=== PATIENT | male | born 1935 | race Caucasian/White ===

== ENCOUNTER 2020-07-13 16:36 | Emergency (ER) | payer OTHER ==
--- OUTSIDE RECORDS SUMMARY | 2020-07-13 16:37 | XMS REPORT | Continuity of Care Document ---
:1935 Author Organization [facility] t Address [address] [place] [address] Care Team Providers Name Role Phone Valeriano Wilkins MD Attending Clinician Only, Test Attending Clinician Unavailable Russ Wiley RN Attending Clinician Unavailable Julia WHEELER Attending Clinician Keeley MARTÍNEZ Attending Clinician BERTA Attending Clinician Unavailable Valeriano Wilkins MD Admitting Clinician Problems Condition Condition Condition Status Onset Resolution Last Treating Co mments Source Name Details Category Date Date Treatment Clinician Date History of History of Problem Resolve Univers back pain back pain d [facility] of [place] [facility] Radiculiti Radiculiti Problem Active U nivers s s [facility] of [place] [facility] Arthritis Arthritis Problem Active Uni vers of right of right [place] of upper arm [place] [facility] Arthritis Arthritis Problem Active Uni vers of right of right ity of wrist wrist [place] [facility] Allergies, Adverse Reactions, Alerts This patient has no known allergies or adverse reactions. Medications Ordered Filled Start Stop Current Ordering Indication Dosage Frequency Signature Comments Components Source Medication Medication Date Date Medication? Clinician (SIG) Name Name amLODIPine amLODIPine Yes Uni vers Besylate Besylate ity of TABS TABS [place] [facility] Losartan Losartan Yes Univers Potassium Potassium ity o f TABS TABS [place] [facility] Procedures This patient has no known procedures. Encounters Start End Encounter Admission Attending Care Care Encounter Source Date/Time Date/Time Type Type Clinicians Facility Department ID 2020-04-02 2020-04-02 [facility] Franky [facility] [id number] 11:03:03 13:10:00 Encounter Francisco Call [id number] Valeriano Beverly [id number] Surgical [id number] [place] 071 2020-03-26 2020-03-26 [facility] [id number] 07:05:55 09:52:00 Encounter Francisco Call [id number] Valeriano Rush [id number] Surgical [id number] [place] [address] 2020-03-25 2020-03-25 Laboratory Only, [facility] [id number] 08:20:41 08:35:41 Only Test Oneyda [id number] [place] [id number] Professio [id number] [address] 2020-03-25 2020-03-25 [facility] [id number] 00:00:00 00:00:00 Laura Solano MULTISPEC [id number] IALTY [id number] CALLIHAM [id number] [facility] 2020-03-12 2020-03-12 Anesthesia Remy Dumont [facility] [id number] 08:30:00 09:04:00 Benjamín [place] 35 [id number] [place] [id number] Surgical [id number] [place] 020 2019-11-26 2019-11-26 Appointmen BERTA [facility] Orthopedics [id number] [facility] 13:30:00 13:30:00 vivian AGRAWAL M.D. at [facility] Yusef Vanessa [facility] [place] - [facility] [place] Results Test Description Test Time Test Comments Results Result Sourc e Comments [U] XRAY ELBOW 2 2019-11-26 Images Universi ty of VWS RIGHT [id number] 14:11:00 acquired, not [place] reported on [facility] this accession number. [U] XRAY HAND MIN 2019-11-26 Images Univers ity of 3 VWS RIGHT [id number] 14:11:00 [place] [facility] [place] accession number.
[2020-07-13 17:22] LABS: Absolute Lymphocytes (CBC) 1.3 K/uL (0.7-4.9); Basophils % 0.4 % (0-1.3); Hematocrit 39.5 % (39.6-49.0); Lymphocytes % 8.8 % (15.3-44.8); MPV 8.6 fL (7.6-11.3); RBC Red Blood Cell Count 4.03 M/uL (4.33-5.43)
--- NOTE | 2020-07-13 17:27 | RAD REPORT ---
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 All CT scans are performed using dose optimization technique as appropriate and may include automated exposure control or mA/KV adjustment according to patient size. FINDINGS: No intracranial hemorrhage, mass, or cerebral edema. No cortical edema or sulcal effacemen t. No extra-axial fluid collections. 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 Diminished attenuation in the left occip ital lobe probably old CVA as well. Mild to moderate atrophy changes are present. Ventricles are in proportion. Chronic ischemic changes are seen throughout the cerebral white matter. Arterial and physiologic calcifications are present. Visualized portions of the mastoid air cells, paranasal sinuses, and orbits are unremarkable. Findings telephoned to the referring physician 5:21 p.m. IMPRESSION: No CT evidence of acute intracranial process. Left parietal and occipital encephalomalacia changes from prior CVA. Atrophy and chronic ischemic tommy nges are present throughout the cerebral hemispheres. Chronic ischemic changes can mask nonhemorrhagic acute infarction. MR brain followup can be obtained if there is ongoing concern for acute ischemia.
[2020-07-13 17:31] LABS: Protime INR 0.97
--- NOTE | 2020-07-13 17:37 | RAD REPORT ---
EXAM DESCRIPTION: RAD - Chest Single View - 07/13/2020 5:27 pm CLINICAL HISTORY: COPD COMPARISON: None TECHNIQUE: AP portable chest image was obtained 07/13/2020 5:27 pm . FINDINGS: Fibrotic lung pattern is present. Apical pleural thickening is seen. No focal mass or cons olidation. No failure or volume overload. Heart and vasculature are normal. No measurable pleural eff usion and no pneumothorax. No acute bony abnormality seen. No acute aortic findings suspected. IMPRESSION: Interstitial fibrotic pattern with no acute cardiopulmonary finding.
[2020-07-13 17:44] LABS: BUN Blood Urea Nitrogen 20 mg/dL (7-18); Bicarbonate 24 mmol/L (21-32); Glucose Level 101 mg/dL (74-106); Sodium Level 137 mmol/L (136-145); Troponin (Emerg Dept Use Only) < 0.02 ng/mL (0.0-0.045)
[2020-07-13 17:46] LABS: Potassium 4.4 mmol/L (3.5-5.1)
[2020-07-13] MEDS ORDERED: ASPIRIN 325 MG TAB ONE (17:54)
[2020-07-13] MEDS ORDERED: FOLIC ACID 5 MG/ML VIAL ONE (17:55)
--- NOTE | 2020-07-13 18:40 | EDPHYS ---
Physician Documentation [facility] Name: Saad Singh Age: 84 yrs Sex: Male : 1935 Arrival Date: 07/13/2020 Time: 16:37 Bed 8 Private MD: ED Physician Chandu Foreman HPI: 07/13 16:59 This 84 yrs old Male presents to ER via Wheelchair with complaints of S/S of rn Possible Stroke. 16:59 The patient's problem is reported as weakness, in the right lower extremity. Onset: The rn symptoms/episode began/occurred 6 day(s) ago. Duration: The episode is continuous. The symptoms are alleviated by nothing. The symptoms are aggravated by nothing. Severity of symptoms: At their worst the symptoms were mild in the emergency department the symptoms are unchanged. The patient has experienced a previous episode. Family reports about 6 days ago began dragging right foot, has had stroke before, didn't come in for eval because of fear of COVID-19, not improving, daughter came from out of town and made him come in today. No headache. + long time smoker and daughter states appears to have labored breathing, no diagnosis of COPD, but 70+ years of smoking hx. No fever. No trauma. Also reports about 2 years of left groin swelling and pain, no gross changes. . 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 - Family history:: not pertinent. - Social history:: Smoking status: Patient reports the use of cigarette tobacco products. - Hospitalizations: : No recent hospitalization is reported. ROS: 16:59 Constitutional: Negative for fever, chills, and weight loss, Eyes: Negative for injury, rn pain, redness, and discharge, ENT: Negative for injury, pain, and discharge, Neck: Negative for injury, pain, and swelling, Cardiovascular: Negative for chest pain, palpitations, and edema, Respiratory: Negative for pleuritic chest pain, Abdomen/GI: Negative for nausea, vomiting, diarrhea, and constipation, MS/Extremity: Negative for injury and deformity, Skin: Negative for injury, rash, and discoloration, Neuro: Negative for headache, numbness, tingling, and seizure. Exam: 16:59 Constitutional: Thin male, no acute distress Head/Face: Normocephalic, atraumatic. music industry intern: dry MM Cardiovascular: Regular rate and rhythm. No pulse deficits. Respiratory: + mild tachypnea, no retractions Abdomen/GI: soft, non-tender, + large left inguinal hernia that extends toward left testicle, no skin changes. Skin: Warm, dry MS/ Extremity: Pulses equal, no cyanosis. Neuro: Awake and alert, GCS 15, oriented to person, place, time, and situation. Cranial nerves II-XII grossly intact. Motor strength 5/5 in LUE/LLE, + contracted RUE distal> proximal, 4/5 strength RLE without drift. Sensory grossly intact. Cerebellar exam normal. 17:32 ECG was reviewed by the Attending Physician. rn Vital Signs: 16:38 BP 124 / 62; Pulse 100; Resp 16 S; Temp 98.3(O); Pulse Ox 100% on R/A; aa5 17:45 BP 115 / 61; Pulse 94; Resp 15; Pulse Ox 100% ; jl7 18:30 BP 131 / 65; Pulse 94; Resp 94; Pulse Ox 100% ; jl7 19:00 BP 113 / 64; Pulse 95; Resp 15; Pulse Ox 97% ; jl7 NIH Stroke Scale Scores: 16:48 NIHSS Score: 2 jl7 MDM: 16:43 Patient medically screened. rn 18:35 Differential diagnosis: CVA, TIA, metabolic disorder, UTI, dehydration COPD. Data rn reviewed: vital signs, nurses notes, lab test result(s), EKG, radiologic studies, CT scan, plain films, and as a result, I will admit patient. Counseling: I had a detailed discussion with the patient and/or guardian regarding: the historical points, exam findings, and any diagnostic results supporting the discharge/admit diagnosis, lab results, the need for further work-up and treatment in the hospital. Response to treatment: There is no appreciated change of the patient's symptoms at this time. Admission orders: after a detailed discussion of the patient's condition and case, the admit orders are written by me. ED course: Pt with signs and symptoms of subacute stroke, CT head without acute findings, stable vitals. Will admit to hospitalist service for MRI and neuro consult. Pending UA. . 18:58 ED course: [facility] Spoke with daughter and rn , they are leaving it up to him ultimately. Will dc home with abx for UTI, and recommend baby aspirin daily. . 07/13 16:58 Order name: Troponin (emerg Dept Use Only); Complete Time: 18:19 07/13 16:58 Order name: Basic Metabolic Panel; Complete Time: 18:19 07/13 16:58 Order name: CBC with Diff; Complete Time: 17:31 07/13 16:58 Order name: Protime (+inr); Complete Time: 18:19 07/13 16:58 Order name: Ptt, Activated; Complete Time: 18:19 07/13 17:25 Order name: Glucose, Ancillary Testing; Complete Time: 17:28 [facility] 07/13 16:58 Order name: CT Stroke Brain w/o Contrast; Complete Time: 17:31 07/13 16:58 Order name: Stroke CXR 1 View; Complete Time: 17:42 07/13 17:30 Order name: Urine Microscopic Only 07/13 18:49 Order name: Urine Dipstick--Ancillary (enter results) 07/13 19:05 Order name: Urine Culture [facility] 07/13 16:58 Order name: EKG; Complete Time: 16:59 07/13 16:58 Order name: Accucheck; Complete Time: 17:16 07/13 16:58 Order name: Cardiac monitoring; Complete Time: 17:16 07/13 16:58 Order name: EKG - Nurse/Tech; Complete Time: 17:16 07/13 16:58 Order name: IV Saline Lock; Complete Time: 17:16 07/13 16:58 Order name: Labs collected and sent; Complete Time: 17:16 07/13 16:58 Order name: O2 Per Protocol; Complete Time: 17:16 07/13 16:58 Order name: O2 Sat Monitoring; Complete Time: 17:16 07/13 17:30 Order name: Urine Dipstick-Ancillary (obtain specimen); Complete Time: 19:02 rn EC:32 Rate is 96 beats/min. Rhythm is regular. QRS Breeding is Normal. MA interval is normal. QRS rn interval is normal. QT interval is normal. No Q waves. T waves are Normal. No ST changes noted. Clinical impression: NSR w/ Non-specific ST/T Changes. Interpreted by me. Reviewed by me. Administered Medications: 17:51 Drug: Aspirin 325 mg Route: PO; jl7 19:15 Follow up: Response: No adverse reaction jl7 17:51 Drug: foLIC Acid 1 mg Route: IVPB; Site: left forearm; jl7 17:52 Follow up: Response: No adverse reaction; IV Status: Completed infusion jl7 18:55 Drug: Rocephin 1 grams Route: IV; Rate: calculated rate; Site: left forearm; jl7 18:58 Follow up: Response: No adverse reaction; IV Status: Completed infusion jl7 Point of Care Testing: Blood Glucose: 17:10 Blood Glucose: 98 mg/dL; jl7 Ranges: Critical Glucose Levels:Adult <50 mg/dl or >400 mg/dl <40 mg/dl or >180 mg/dl Disposition: 07/13/20 19:00 Discharged to Home. Impression: Weakness, Subacute CVA, Urinary tract infection, site not specified. - Condition is Stable. - Discharge Instructions: Stroke Prevention, Urinary Tract Infection, Adult, Weakness, Rehabilitation After a Stroke, Adult. - Prescriptions for cefpodoxime 100 mg Oral Tablet - take 2 tablet by ORAL route every 12 hours for 10 days take with food; 40 tablet. - Medication Reconciliation Form, Thank You Letter, Antibiotic Education, Prescription Opioid Use form. - Follow up: Phu Oshea MD; When: As needed; Reason: Recheck today's complaints, Re-evaluation by your physician. - Problem is new. - Symptoms are unchanged. NIH Stroke Scale - NIH Stroke Score Date: 07/13/2020 Time: 16:48 Total Score = 2 1a. Level of Consciousness (LOC) - 0(Alert) 1b. Level of Consciousness (LOC) (Year \T\ Age) - 0(Both) 1c. LOC Commands (Open \T\ Closes Eyes/Prosthetics Technician) - 0(Both) 2. Best Gaze (Lateral Gaze Paresis) - 0(Normal) 3. Visual Field Loss - 0(No visual loss) 4. Facial Palsy - 0(Normal) 5a. Left Arm: Motor (10-second hold) - 0(No drift) 5b. Right Arm: Motor (10-second hold) - 1(Drift) 6a. Left Leg: Motor (5-second hold - always test supine) - 0(No drift) 6b. Right Leg: Motor (5-second hold - always test supine) - 0(No drift) 7. Limb Ataxia (finger/nose \T\ heel/chu - test with eyes open) - 1(Present in one limb) 8. Sensory Loss (pinprick arms/legs/face) - 0(Normal) 9. Best Language: Aphasia (description/naming/reading) - 0(No aphasia) 10. Dysarthria (speech clarity - read or repeat words) - 0(Normal) 11. Extinction and Inattention (visual/tactile/auditory/spatial/personal) - 0(No abnormality) Initials: jl7 Signatures: Dispatcher [employer] EDChandu Rm MD MD rn Calderon, Yaritza, RN RN aa5 [employer] RN RN jl7 Corrections: (The following items were deleted from the chart) 18:59 18:39 Hospitalization Ordered by Nicolas Foreman MD for Observation. Preliminary rn diagnosis is Weakness; Chronic obstructive pulmonary disease, unspecified. Bed requested for Telemetry/MedSurg (observation). Status is Observation. Condition is Stable. Problem is new. Symptoms are unchanged. rn 19:16 19:00 07/13/2020 19:00 Discharged to Home. Impression: Weakness; Subacute CVA; jl7 Urinary tract infection, site not specified. Condition is Stable. Forms are Medication Reconciliation Form, Thank You Letter, Antibiotic Education, Prescription Opioid Use. Follow up: Phu Oshea; When: As needed; Reason: Recheck today's complaints, Re-evaluation by your physician. Problem is new. Symptoms are unchanged. rn
--- NOTE | 2020-07-13 18:40 | ER ---
Nurse's Notes [facility] Name: Saad Singh Age: 84 yrs Sex: Male : 1935 Arrival Date: 07/13/2020 Time: 16:37 Bed 8 Private MD: Diagnosis: Weakness;Subacute CVA;Urinary tract infection, site not specified Presentation: 07/13 16:38 Chief complaint: Pt's daughter states "my mom called me about 6 days ago saying that he aa5 fell and couldn't get up and that he was talking incoherently and I came down here from [place] and [facility]". Pt's daughter reports pt has right arm weakness from previous CVA but reports right leg weakness is new from 6 days ago. Pt appears confused in triage, daughter reports confusion x 6 days. 16:38 Acuity: COREY 2 aa5 16:38 Coronavirus screen: Client denies travel out of the [place] in the last 14 days. At this aa5 time, the client does not indicate any symptoms associated with coronavirus-19. 16:38 Method Of Arrival: Wheelchair aa5 16:38 Ebola Screen: Patient negative for fever greater than or equal to 101.5 degrees aa5 Fahrenheit, and additional compatible Ebola Virus Disease symptoms. Initial Sepsis Screen: Does the patient meet any 2 criteria? No. Patient's initial sepsis screen is negative. Does the patient have a suspected source of infection? No. Patient's initial sepsis screen is negative. Risk Assessment: Do you want to hurt yourself or someone else? Patient reports no desire to harm self or others. 16:38 Onset of symptoms was June 2020. aa5 17:59 No acute neurological deficit is noted. Pre-hospital glucose is not applicable to this jl7 patient. 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 - Family history:: not pertinent. - Social history:: Smoking status: Patient reports the use of cigarette tobacco products. - Hospitalizations: : No recent hospitalization is reported. Screenin:17 Abuse screen: Denies threats or abuse. Denies injuries from another. Nutritional jl7 screening: No deficits noted. Tuberculosis screening: No symptoms or risk factors identified. Fall Risk IV access (20 points). Total [place] Fall Scale indicates No Risk (0-24 pts). Assessment: 16:48 VAN Scoring: Arm Drift: Minor drift Visual Disturbance: No visual disturbance noted. jl7 Aphasia: No aphasia noted. Neglect: No neglect noted. The patient has not been NPO before screening. The patient is currently on the following diet: Regular The patient is alert, and able to follow commands. The patient does not exhibit slurred or garbled speech. The patient is not exhibiting difficulty speaking. The patient does not exhibit difficulty understanding words. The patient is able to swallow own secretions with no drooling or need for suction. Patient tolerated one teaspoon of water. No drooling, immediate coughing, gurgling, or clearing of the throat was noted. The patient tolerated 90mL of water. No drooling, immediate coughing, gurgling, or clearing of the throat was noted. The patient passed the bedside swallow screening. Oral medications may be given as ordered. Contact Physician for further diet orders. Provider notified of bedside swallow screening results: Chandu Foreman MD. 16:50 General: Appears in no apparent distress. uncomfortable, Behavior is cooperative, jl7 anxious. Pain: Denies pain. Neuro: Level of Consciousness is awake, alert, obeys commands, confused, Oriented to person, place, situation. Cardiovascular: Patient's skin is warm and dry. Respiratory: Airway is patent Respiratory effort is even, unlabored, Respiratory pattern is regular, symmetrical. GI: No signs and/or symptoms were reported involving the gastrointestinal system. : No signs and/or symptoms were reported regarding the genitourinary system. EENT: No signs and/or symptoms were reported regarding the EENT system. Derm: Skin is pink, warm \\T\\ dry. Musculoskeletal:. 17:00 T-PA (Activase) Screening: Contraindications: Patient reports onset of signs and jl7 symptoms of stroke greater than 6 hours ago: Yes. 17:58 Reassessment: Patient appears in no apparent distress at this time. No changes from jl7 previously documented assessment. Patient and/or family updated on plan of care and expected duration. Pain level reassessed. Patient is alert, oriented x 3, equal unlabored respirations, skin warm/dry/pink. 18:45 Reassessment: ERD at bedside discussing results and POC. jl7 Vital Signs: 16:38 BP 124 / 62; Pulse 100; Resp 16 S; Temp 98.3(O); Pulse Ox 100% on R/A; aa5 17:45 BP 115 / 61; Pulse 94; Resp 15; Pulse Ox 100% ; jl7 18:30 BP 131 / 65; Pulse 94; Resp 94; Pulse Ox 100% ; jl7 19:00 BP 113 / 64; Pulse 95; Resp 15; Pulse Ox 97% ; jl7 NIH Stroke Scale Scores: 16:48 NIHSS Score: 2 jl7 ED Course: 16:37 Patient arrived in ED. as 16:43 Chandu Foreman MD is Attending Physician. rn 16:43 Arm band placed on Patient placed in an exam room, on a stretcher. aa5 16:45 [employer], DARSHAN is Primary Nurse. jl7 16:53 Triage completed. aa5 17:17 Patient has correct armband on for positive identification. Placed in gown. Bed in low jl7 position. Call light in reach. Side rails up X2. Adult w/ patient. pvc monitor on. Pulse ox on. NIBP on. Warm blanket given. 17:17 Initial lab(s) drawn, by me, sent to lab. EKG done, by ED staff, reviewed by Chandu Foreman MD. Inserted saline lock: 20 gauge in right forearm, using aseptic technique. Blood collected. 17:18 CT Stroke Brain w/o Contrast In Process Unspecified. EDMS 17:27 Stroke CXR 1 View In Process Unspecified. EDMS 18:38 Nicolas Foreman MD is Hospitalizing Provider. rn 18:59 Phu Oshea MD is Referral Physician. rn 19:01 Urine collected: straight cath specimen, cloudy. Straight cath inserted, using sterile mh5 technique, 16 Fr. Specimen obtained. 19:02 Urine Microscopic Only Sent. [facility] 19:16 No provider procedures requiring assistance completed. IV discontinued, intact, jl7 bleeding controlled, No redness/swelling at site. Pressure dressing applied. Administered Medications: 17:51 Drug: Aspirin 325 mg Route: PO; 7 19:15 Follow up: Response: No adverse reaction jl7 17:51 Drug: foLIC Acid 1 mg Route: IVPB; Site: left forearm; jl7 17:52 Follow up: Response: No adverse reaction; IV Status: Completed infusion jl7 18:55 Drug: Rocephin 1 grams Route: IV; Rate: calculated rate; Site: left forearm; jl7 18:58 Follow up: Response: No adverse reaction; IV Status: Completed infusion 7 Point of Care Testing: Blood Glucose: 17:10 Blood Glucose: 98 mg/dL; 7 Ranges: Outcome: 18:39 Decision to Hospitalize by Provider. rn 19:00 Discharge ordered by MD. rn 19:16 Discharged to home via wheelchair. [facility] emergency room 19:16 Condition: stable 19:16 Discharge instructions given to patient, family, Instructed on discharge instructions, follow up and referral plans. medication usage, Demonstrated understanding of instructions, follow-up care, medications, Prescriptions given X 1. 19:16 Patient left the ED. 7 NIH Stroke Scale - NIH Stroke Score Date: 07/13/2020 Time: 16:48 Total Score = 2 1a. Level of Consciousness (LOC) - 0(Alert) 1b. Level of Consciousness (LOC) (Year \\T\\ Age) - 0(Both) 1c. LOC Commands (Open \\T\\ Closes Eyes/Radiological Equipment Specialist) - 0(Both) 2. Best Gaze (Lateral Gaze Paresis) - 0(Normal) 3. Visual Field Loss - 0(No visual loss) 4. Facial Palsy - 0(Normal) 5a. Left Arm: Motor (10-second hold) - 0(No drift) 5b. Right Arm: Motor (10-second hold) - 1(Drift) 6a. Left Leg: Motor (5-second hold - always test supine) - 0(No drift) 6b. Right Leg: Motor (5-second hold - always test supine) - 0(No drift) 7. Limb Ataxia (finger/nose \\T\\ heel/chu - test with eyes open) - 1(Present in one limb) 8. Sensory Loss (pinprick arms/legs/face) - 0(Normal) 9. Best Language: Aphasia (description/naming/reading) - 0(No aphasia) 10. Dysarthria (speech clarity - read or repeat words) - 0(Normal) 11. Extinction and Inattention (visual/tactile/auditory/spatial/personal) - 0(No abnormality) Initials: jl7 Signatures: Dispatcher [employer] Alexandrea Jean Roman, MD MD rn Calderon, Audri, RN RN sam5 Yuli Cui Jahala, RN RN jl7
[2020-07-13] MEDS ORDERED: CEFTRIAXONE/SWI 1gm 1 GM/10 ML SYR ONE (19:01)
[2020-07-13 19:04] LABS: Urine Bacteria 20-50 /HPF (NONE SEEN); Urine Culture Reflex Order REFLEXED; Urine Mucus 1+ /HPF (NONE SEEN)
[2020-07-13 19:05] LABS: Urine Blood TRACE (NEG); Urine Glucose NEGATIVE (NEG); Urine Protein 1+ (NEG); Urine Specific Gravity 1.025 (1.005-1.030)
--- NOTE | 2020-07-14 07:01 | EKG ---
Test Date: 2020-07-13 Test Time: 16:58:31 Senior Supply Chain Analyst: RUPESH MEASUREMENT RESULTS: Intervals: Rate: 96 MA: 174 QRSD: 94 QT: 352 QTc: 444 [place]: P: 79 MA: 174 QRS: 66 T: 78 INTERPRETIVE STATEMENTS: Normal sinus rhythm Possible Left atrial enlargement Septal infarct, age undetermined Abnormal ECG No previous ECG available for comparison Electronically Signed On 07-14-20 07:00:09 CDT by Orion Mcbride
[2020-07-16 11:39] VITALS: TEMP 98.3
[2020-07-16 11:43] VITALS: BP 113/64; O2SAT 97
== END 2020-07-13 19:16 | disposition home or self-care (01) ==
LOC: ER 16:36
DX: I63.9 Cerebral infarction, unspecified (principal); N39.0 Urinary tract infection, site not specified; R29.702 NIHSS score 2; I10 Essential (primary) hypertension; F17.210 Nicotine dependence, cigarettes, uncomplicated
CPT/HCPCS: 93005; 87088; 85025; 87086; 80048; 36415; 85610; 82947; 85730; 84484; 70450; 71045; 51702; 96375; 96374; 99285; J0696; 81003; 81015

== ENCOUNTER 2020-10-01 07:02 | Day surgery (SDC) | payer OTHER ==
[2020-09-28 15:03] LABS: Absolute Lymphocytes (CBC) 1.5 K/uL (0.7-4.9); Basophils % 0.9 % (0-1.3); Hematocrit 36.9 % (39.6-49.0); Lymphocytes % 21.4 % (15.3-44.8); MPV 8.9 fL (7.6-11.3); RBC Red Blood Cell Count 3.91 M/uL (4.33-5.43)
[2020-09-28 15:21] LABS: Potassium 4.1 mmol/L (3.5-5.1)
[2020-10-01] MEDS ORDERED: Ringers Lactate 1,000 ML IV ONE (07:26)
[2020-10-01] MEDS ORDERED: CEFAZOLIN/SWI 1gm 1 GM/10 ML SYR ONE (07:26)
[2020-10-01] MEDS ORDERED: FENTANYL CITR 100 MCG/2 ML ONE (07:33)
[2020-10-01] MEDS ORDERED: MIDAZOLAM HCL 2 MG/2 ML INJ ONE (07:33)
[2020-10-01] MEDS ORDERED: propofoL 200 MG/20 ML VIAL IV ONE (07:33)
[2020-10-01] MEDS ORDERED: LIDOCAINE 1% MPF 5 ML VIAL ONE (07:33)
[2020-10-01] MEDS ORDERED: NS 0.9% VIAL 10 ML ONE (08:16)
[2020-10-01] MEDS ORDERED: Phenylephrine HCl 10 MG/ML 1 ML VIAL ONE (08:16)
[2020-10-01] MEDS ORDERED: dexAMETHasone 10 MG/ML VIAL ONE (08:28)
[2020-10-01] MEDS ORDERED: KETOROLAC 30 MG/ML INJ ONE (08:28)
[2020-10-01] MEDS ORDERED: ONDANSETRON 4 MG/2 ML VIAL ONE ×2 (08:45→09:32)
[2020-10-01] MEDS ORDERED: Mastisol Adhesive Liq ONE (08:52)
[2020-10-01] MEDS ORDERED: MORPHINE 4 MG/ML SYR ONE (09:32)
--- NOTE | 2020-10-01 09:59 | OP ---
Date of Procedure: 10/01/2020 Surgeon: David Love MD Welt Treater: LEILANI Rivas. Preoperative Diagnosis: Incarcerated left inguinal hernia. Postoperative Diagnosis: Incarcerated left inguinal hernia. Procedure: Repair of left inguinal hernia, incarcerated. Estimated Blood Loss: Minimal. Specimen: Hernia sac. Findings: Incarcerated small bowel and colon and a large inguinal scrotal hernia on the left side. Anesthesia: General. Complications: None. Disposition: The patient tolerated the procedure in stable condition and taken to Recovery awake and in good general condition. Procedure In Detail: The patient was brought to the OR, placed in supine position. General anesthes ia begun. The patient was prepped and draped in the usual sterile fashion. Then, Marcaine 0.5% was infiltrated locally. A 15-blade was used to make a 5 cm incision obliquely to the anterior iliac sup erior spine on the left side and the pubic tubercle. Subcutaneous tissues were divided. Theresa fasc ia was identified and divided. Aponeurosis was greatly attenuated. The hernia sac with content and cord structures were visible just below the Theresa fascia. The cord structure was from the hernia and the hernia sac was identified and opened. There was incarcerated small bowel and sigmoid colon present, which were carefully reduced back into the peritoneal cavity and then the sac was sep arated from the cord structures, and a high ligation 2-0 Prolene, suture ligature free hand tie as we ll as a pursestring on the inside was done to close the defect. The inguinal floor was somewhat atte nuated and this was strengthened after the sac was excised with 2-0 Prolene sutures running from the pubic tubercle inferiorly in the internal ring. Then, Marlex mesh plug was placed in the internal ri ng and secured with VersaTack stapler. An Onlay mesh was placed on the inguinal floor, secured media lly to the pubic tubercle, inferiorly to the shelving edge, superior to the conjoined tendon, and lat erally to each other. Then, cord structures were placed back in anatomic location and aponeurosis as it was attenuated could not be sutured. The Theresa fascia was closed with 3-0 chromic. The skin wa s closed with 3-0 chromic. Sterile dressing was applied. The patient was awakened and taken to [facility] very in good general condition. Discharge Note: The patient will go to Day Surgery and home when stable. Disposition: Home. Condition: Stable. Discharge Instructions: Resume home medications and diet. Activity as tolerated. No heavy lifting. Remove outer dressing in 3 days and shower. Keep wound clean, dry. Keep Steri-Strips on at all ti mes. Ice packs and scrotal support. Tylenol No.3 one tablet p.o. q.4 p.r.n. pain. Follow up in my o julius in 2 weeks. Call for appointment. SUHA/RASHEEDA Voice ID: [id number] Report ID: [id number]
[2020-10-01] MEDS ORDERED: HYDROCODONE/APAP 7.5/325 MG TAB ONE (10:17)
[2020-10-01 10:19] VITALS: TEMP 97.6; O2SAT 100
[2020-10-01 10:46] VITALS: BP 122/64
== END 2020-10-01 10:40 | disposition home or self-care (01) ==
LOC: OR 07:02
PROVIDERS: ATTEND Surgery
PROC: 0YU60JZ Supplement Left Inguinal Region with Synthetic Substitute, Open Approach (ICD-10-PCS; principal; 2020-10-01 08:30)
DX: K40.30 Unilateral inguinal hernia, with obstruction, without gangrene, not specified as recurrent (principal); I10 Essential (primary) hypertension; Z20.828 Contact with and (suspected) exposure to other viral communicable diseases; Z86.73 Personal history of transient ischemic attack (TIA), and cerebral infarction without residual deficits
CPT/HCPCS: 85025; 80048; 36415; 88302; 49507; U0002; J2704; J2370; J3010; J1100; J0690; J7120; J2405 ×2; J2250

== ENCOUNTER 2020-11-09 07:19 | Day surgery (SDC) | payer OTHER ==
[2020-11-04 11:36] LABS: Absolute Lymphocytes (CBC) 1.3 K/uL (0.7-4.9); Basophils % 0.7 % (0-1.3); Hematocrit 36.3 % (39.6-49.0); Lymphocytes % 15.9 % (15.3-44.8); RBC Red Blood Cell Count 3.83 M/uL (4.33-5.43)
[2020-11-04 12:03] LABS: Protime INR 0.99
[~2020-11-09 07:19] MED LIST: HEPA 1000U/500MLS 2,000 UNIT/1,000 ML BAG IV ONE
[2020-11-09] MEDS ORDERED: NA CHLORIDE 0.9% 500 ML ONE (07:37)
[2020-11-09] MEDS ORDERED: MIDAZOLAM HCL 2 MG/2 ML INJ ONE (09:49)
[2020-11-09] MEDS ORDERED: FENTANYL CITR 100 MCG/2 ML ONE (09:50)
--- NOTE | 2020-11-09 11:09 | OP ---
Date of Procedure: 11/09/2020 Surgeon: ABDIRAHMAN CREWS Procedure Performed: Selective carotid angiogram. Indication: Severe carotid stenosis by ultrasound and recent CVA. Access: Right femoral artery 6-Zimbabwean, closed with StarClose with good hemostasis. Complications: None. Bleeding: Less than 10 mL. Description Of Procedure: After risks, benefits, and alternatives were explained, the patient agreed to the procedure and signed informed consent. Then, we accessed right femoral artery with guidance of the fluoroscopy and then inserted a 6-Zimbabwean [place] sheath. We used a micropuncture kit for trinity t. Then, we took a 6-Zimbabwean 3DRC catheter into the aortic root over a J-wire, engaged the brachyceph alic artery, and then selectively the right common carotid artery and we took standard views and then we engaged the left common carotid artery selectively and took standard views. Then, we removed the catheter and the sheath and closed the access using StarClose with good hemostasis. Findings: 1.The right common carotid artery is patent. Right internal carotid artery is patent. 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 No significant stenosis. 2.Left common carotid artery is severely stenosed, likely 99% with a very slow flow through the jersey ry. Could not visualize the distal portion of it. Conclusion: Severe right common carotid artery stenosis. Recommendations And Plan: I discussed the case with Dr. Hopkins, Cardiovascular Surgery. We will pl an to transfer the patient to [facility] for carotid endarterectomy tomorrow morning given the fact trinity t he had a stroke affecting his right side of the body within the past 6 months. SR/MODL Voice ID: [id number] Report ID: [id number]
[2020-11-09 13:29] VITALS: TEMP 97.3; O2SAT 100
[2020-11-09 13:58] VITALS: BP 130/64
== END 2020-11-09 14:05 | disposition short-term general hospital (02) ==
LOC: CCL 07:19
PROVIDERS: ATTEND Internal Medicine
DX: I65.22 Occlusion and stenosis of left carotid artery (principal); I10 Essential (primary) hypertension; F17.210 Nicotine dependence, cigarettes, uncomplicated; Z86.73 Personal history of transient ischemic attack (TIA), and cerebral infarction without residual deficits; Z01.810 Encounter for preprocedural cardiovascular examination; Z20.828 Contact with and (suspected) exposure to other viral communicable diseases
CPT/HCPCS: 93005; 85025; 80048; 36415; 85610; 85730; 36222; C1893; J2250; J3010; J7040; J1644; U0002

== ENCOUNTER 2022-03-03 10:14 | Emergency (ER) | payer OTHER ==
[2022-03-03 11:40] LABS: Hematocrit 40.5 % (39.6-49.0); Lymphocytes % 16.5 % (15.3-44.8); MPV 8.6 fL (7.6-11.3); RBC Red Blood Cell Count 3.94 M/uL (4.33-5.43)
[2022-03-03] MEDS ORDERED: METHYLPREDNISOLONE 125 MG INJ ONE (11:42)
[2022-03-03] MEDS ORDERED: LEVALBUTEROL 1.25 MG/3 ML NEB ONE (11:42)
[2022-03-03] MEDS ORDERED: NA CHLORIDE 0.9% 250 ML ONE (11:43)
[2022-03-03] MEDS ORDERED: IPRATROPIUM BROM 0.5MG/2.5ML ONE (11:43)
[2022-03-03] MEDS ORDERED: AZITHROMYCIN 500 MG INJ IVPB ONE (11:43)
--- NOTE | 2022-03-03 11:43 | RAD REPORT ---
EXAM DESCRIPTION: RAD - Chest Single View - 03/03/2022 11:36 am CLINICAL HISTORY: CONGESTION Chest pain. COMPARISON: Chest Single View dated 07/13/2020 FINDINGS: Portable technique limits examination quality. The lungs are emphysematous but grossly clear. The heart is normal in size. No displaced fractures. IMPRESSION: Moderate COPD.
[2022-03-03 11:46] LABS: Protime INR 0.96
[2022-03-03 11:59] LABS: ALT/SGPT 19 U/L (12-78); AST/SGOT 15 U/L (15-37); Albumin 3.9 g/dL (3.4-5.0); Alkaline Phosphatase 175 U/L (45-117); BUN Blood Urea Nitrogen 13 mg/dL (7-18); Bicarbonate 30 mmol/L (21-32); Bilirubin Direct 0.2 mg/dL (0-0.2); Bilirubin Total 0.8 mg/dL (0.2-1.0); Creatine Phosphokinase 34 U/L (39-308); Glucose Level 103 mg/dL (74-106); Lipase 46 U/L (73-393); Magnesium 2.3 mg/dL (1.8-2.4); NT PRO-BNP 180 pg/mL (<450); Potassium 4.2 mmol/L (3.5-5.1); Protein, Total 8.4 g/dL (6.4-8.2); Sodium Level 139 mmol/L (136-145)
[2022-03-03 12:02] LABS: CKMB Creatine Kinase MB < 1.0 ng/mL (1.0-3.6)
--- NOTE | 2022-03-03 12:17 | ER ---
Nurse's Notes [facility] Name: Saad Singh Age: 86 yrs Sex: Male : 1935 Arrival Date: 03/03/2022 Time: 10:16 Bed 17 Private MD: Osmel Woodward Diagnosis: Acute bronchitis, unspecified;COPD/ Chronic obstructive pulmonary disease, unspecified Presentation: 03/03 10:37 Chief complaint: Patient's son or daughter states: "He has been SOB, wheezing, coughing ab2 for about a week or 2. He has some swelling in the right leg.". Coronavirus screen: Vaccine status: Patient reports receiving the 2nd dose of the covid vaccine. Client denies travel out of the [place] in the last 14 days. Ebola Screen: Patient negative for fever greater than or equal to 101.5 degrees Fahrenheit, and additional compatible Ebola Virus Disease symptoms Patient denies exposure to infectious person. Patient denies travel to an Ebola-affected area in the 21 days before illness onset. No symptoms or risks identified at this time. Initial Sepsis Screen: Does the patient meet any 2 criteria? No. Patient's initial sepsis screen is negative. Does the patient have a suspected source of infection? No. Patient's initial sepsis screen is negative. Risk Assessment: Do you want to hurt yourself or someone else? Patient reports no desire to harm self or others. Onset of symptoms is unknown. 10:37 Method Of Arrival: Wheelchair ab2 10:37 Acuity: COREY 3 ab2 Triage Assessment: 10:40 General: Appears in no apparent distress. uncomfortable, Behavior is cooperative, bp appropriate for age, anxious. Pain: Denies pain. EENT: No deficits noted. Neuro: Level of Consciousness is awake, obeys commands, Oriented to person, place. Cardiovascular: No deficits noted. Respiratory: Breath sounds with crackles bilaterally. Breath sounds with wheezes bilaterally. Onset: The symptoms/episode began/occurred at an unknown time. the patient has mild shortness of breath. Respiratory: Airway is patent. GI: No signs and/or symptoms were reported involving the gastrointestinal system. : No signs and/or symptoms were reported regarding the genitourinary system. Derm: No deficits noted. Musculoskeletal: No deficits noted. 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 - Social history:: Smoking status: Patient reports the use of cigarette tobacco products, smokes one pack cigarettes per day. Patient/guardian denies using alcohol, street drugs, The patient lives with family. - Family history:: not pertinent. Screenin:45 Abuse screen: Denies threats or abuse. Denies injuries from another. Nutritional bp screening: No deficits noted. Tuberculosis screening: No symptoms or risk factors identified. Fall Risk None identified. Assessment: 10:38 General: Appears in no apparent distress. comfortable, Behavior is calm, cooperative, ab2 appropriate for age. Pain: Denies pain. Neuro: Level of Consciousness is awake, alert, obeys commands, Oriented to person, place, time, situation, Appropriate for age. Cardiovascular: Reports shortness of breath. Respiratory: Airway is patent Respiratory effort is even, unlabored. Respiratory: Reports shortness of breath cough that is. GI: No deficits noted. No signs and/or symptoms were reported involving the gastrointestinal system. 11:30 Reassessment: No changes from previously documented assessment. Patient and/or family bp updated on plan of care and expected duration. Pain level reassessed. 12:38 Reassessment: D/C ON HOLD FOR IV ABX. Cardiovascular: Rhythm is sinus rhythm. bp 13:27 Reassessment: PT D/C HOME AMBULATORY WITH FAMILY, DX WITH BRONCHITIS AND COPD. bp Vital Signs: 10:41 BP 130 / 55; Pulse 82; Resp 19; Temp 97.9; Pulse Ox 100% on R/A; Weight 55.34 kg; bp Height 5 ft. 10 in. (177.80 cm); Pain 0/10; 11:30 BP 135 / 62; Pulse 74; Resp 19; Pulse Ox 100% ; bp 12:38 BP 120 / 75; Pulse 92; Resp 20; Pulse Ox 100% ; bp 13:27 BP 110 / 49; Pulse 87; Resp 17; Pulse Ox 97% on R/A; bp 10:41 Body Mass Index 17.51 (55.34 kg, 177.80 cm) bp ED Course: 10:16 Patient arrived in ED. as 10:17 [facility] is Private Physician. as 10:38 Triage completed. ab2 10:38 Arm band placed on right wrist. ab2 10:45 Patient has correct armband on for positive identification. Bed in low position. Call bp light in reach. Side rails up X2. Adult w/ patient. 10:57 Antonietta Keenan MD is Attending Physician. ma2 11:11 Remy Herbert, RN is Primary Nurse. bp 11:22 XRAY CXR (1 view) Sent. bp 11:30 Inserted saline lock: 20 gauge in left antecubital area, using aseptic technique. Blood bp collected. 11:37 XRAY CXR (1 view) In Process Unspecified. EDMS 13:27 No provider procedures requiring assistance completed. IV discontinued, intact, bp bleeding controlled, No redness/swelling at site. Pressure dressing applied. Administered Medications: 11:30 Drug: AtroVENT (ipratropium) Aerosol 0.5 mg Route: Inhalation; bp 11:30 Drug: SOLU-Medrol (methylPrednisoLONE) 125 mg Route: IVP; Site: left antecubital; bp 12:11 Follow up: Response: No adverse reaction bp 11:30 Drug: Xopenex (levalbuterol) 1.25 mg Route: Inhalation; bp 11:30 Drug: AZITHromycin 500 mg Route: IVPB; Infused Over: 1 hrs; Site: left antecubital; bp 13:28 Follow up: IV Status: Completed infusion; IV Intake: 250ml bp 11:45 Drug: AtroVENT (ipratropium) Aerosol 0.5 mg Route: Inhalation; bp 12:15 Drug: AtroVENT (ipratropium) Aerosol 0.5 mg Route: Inhalation; bp Intake: 13:28 IV: 250ml; Total: 250ml. bp Outcome: 12:17 Discharge ordered by . ma2 13:27 Discharged to home ambulatory, with family. bp 13:27 Condition: stable 13:27 Discharge instructions given to patient, family, Instructed on discharge instructions, follow up and referral plans. medication usage, Demonstrated understanding of instructions, follow-up care, medications, Prescriptions given X 2. 13:28 Patient left the ED. bp Signatures: Dispatcher [employer] EDMS Alexandrea Cui Brian, RN RN bp Antonietta Keenan MD MD al2 Nikunj Echols ab2 Corrections: (The following items were deleted from the chart) 10:41 BP 130 / 55; Pulse 82bpm; Resp 19bpm; Temp 97.9F; 55.34 kg; Height 5 ft. 10 in.; bp BMI: 17.5; Pain 0/10; ab2
--- NOTE | 2022-03-03 12:17 | EDPHYS ---
Physician Documentation [facility] Name: Saad Singh Age: 86 yrs Sex: Male : 1935 Arrival Date: 03/03/2022 Time: 10:16 Bed 17 Private MD: [facility] ED Physician Antonietta Keenan HPI: 03/03 10:59 This 86 yrs old Male presents to ER via Wheelchair with complaints of Shortness Of ma2 Breath, Wheezing > 1 Year, Leg Swelling. 10:59 History of COPD, here with shortness of breath wheezes intermittent for a year, got ma2 worse today. His cough no fever. 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 - Social history:: Smoking status: Patient reports the use of cigarette tobacco products, smokes one pack cigarettes per day. Patient/guardian denies using alcohol, street drugs, The patient lives with family. - Family history:: not pertinent. ROS: 10:59 Constitutional: Negative for fever, chills, and weight loss. ma2 10:59 All other systems are negative. Exam: 10:59 Constitutional: This is a well developed, well nourished patient who is awake, alert, ma2 and in no acute distress. Chest/axilla: Normal chest wall appearance and motion. Nontender with no deformity. No lesions are appreciated. Cardiovascular: Regular rate and rhythm with a normal S1 and S2. No gallops, murmurs, or rubs. Normal PMI, no JVD. No pulse deficits. Respiratory: expiratory wheeze scattered lungs have equal breath sounds bilaterally, clear to auscultation and percussion. No rales, rhonchi noted. No increased work of breathing, no retractions or nasal flaring. Abdomen/GI: Soft, non-tender, with normal bowel sounds. No distension or tympany. No guarding or rebound. No evidence of tenderness throughout. Back: No spinal tenderness. No costovertebral tenderness. Full range of motion. MS/ Extremity: Pulses equal, no cyanosis. Neurovascular intact. Full, normal range of motion. Neuro: Awake and alert, GCS 15, oriented to person, place, time, and situation. Cranial nerves II-XII grossly intact. Motor strength 5/5 in all extremities. Sensory grossly intact. Cerebellar exam normal. Normal gait. Vital Signs: 10:41 BP 130 / 55; Pulse 82; Resp 19; Temp 97.9; Pulse Ox 100% on R/A; Weight 55.34 kg; bp Height 5 ft. 10 in. (177.80 cm); Pain 0/10; 11:30 BP 135 / 62; Pulse 74; Resp 19; Pulse Ox 100% ; bp 12:38 BP 120 / 75; Pulse 92; Resp 20; Pulse Ox 100% ; bp 13:27 BP 110 / 49; Pulse 87; Resp 17; Pulse Ox 97% on R/A; bp 10:41 Body Mass Index 17.51 (55.34 kg, 177.80 cm) bp MDM: 10:59 Differential diagnosis: Anxiety Reaction Bronchitis Chronic Obstructive Pulmonary ma2 Disease reactive airway disease. 11:17 Patient medically screened. va2 12:16 Data reviewed: vital signs, nurses notes, EMS record, lab test result(s), EKG, ma2 radiologic studies. Counseling: I had a detailed discussion with the patient and/or guardian regarding: the historical points, exam findings, and any diagnostic results supporting the discharge/admit diagnosis, the presence of at least one elevated blood pressure reading (>120/80) during this emergency department visit, the need for outpatient follow up. Response to treatment: the patient's symptoms have markedly improved after treatment. 03/03 10:59 Order name: BMP; Complete Time: 12:16 [facility] 03/03 10:59 Order name: Blood Culture Adult (2) [facility] 03/03 10:59 Order name: CBC with Diff; Complete Time: 11:45 03/03 10:59 Order name: CPK; Complete Time: 12:16 [facility] 03/03 10:59 Order name: Ckmb; Complete Time: 12:16 va03/03 10:59 Order name: D-Dimer; Complete Time: 12:16 03/03 10:59 Order name: Hepatic Function; Complete Time: 12:16 03/03 10:59 Order name: Lipase; Complete Time: 12:16 [facility] 03/03 10:59 Order name: Magnesium; Complete Time: 12:16 ma03/03 10:59 Order name: NT PRO-BNP; Complete Time: 12:16 [facility] 03/03 10:59 Order name: PT-INR; Complete Time: 12:16 [facility] 03/03 10:59 Order name: Ptt, Activated; Complete Time: 12:16 [facility] 03/03 11:19 Order name: Lactate; Complete Time: 12:16 bp 03/03 11:19 Order name: Procalcitonin; Complete Time: 12:16 bp 03/03 10:59 Order name: XRAY CXR (1 view); Complete Time: 11:45 [facility] 03/03 10:59 Order name: EKG; Complete Time: 11:00 [facility] 03/03 10:59 Order name: Cardiac monitoring; Complete Time: 11:11 [facility] 03/03 10:59 Order name: EKG - Nurse/Tech; Complete Time: 11:11 [facility] 03/03 10:59 Order name: IV Saline Lock; Complete Time: 11:51 va03/03 10:59 Order name: Labs collected and sent; Complete Time: 11:51 [facility] 03/03 10:59 Order name: O2 Per Protocol; Complete Time: 11:11 [facility] 03/03 10:59 Order name: O2 Sat Monitoring; Complete Time: 11:11 [facility] 03/03 12:11 Order name: COVID-19 SARS RT PCR (Document "Date of Onset" if Symptomatic) ap3 Administered Medications: 11:30 Drug: AtroVENT (ipratropium) Aerosol 0.5 mg Route: Inhalation; bp 11:30 Drug: SOLU-Medrol (methylPrednisoLONE) 125 mg Route: IVP; Site: left antecubital; bp 12:11 Follow up: Response: No adverse reaction bp 11:30 Drug: Xopenex (levalbuterol) 1.25 mg Route: Inhalation; bp 11:30 Drug: AZITHromycin 500 mg Route: IVPB; Infused Over: 1 hrs; Site: left antecubital; bp 13:28 Follow up: IV Status: Completed infusion; IV Intake: 250ml bp 11:45 Drug: AtroVENT (ipratropium) Aerosol 0.5 mg Route: Inhalation; bp 12:15 Drug: AtroVENT (ipratropium) Aerosol 0.5 mg Route: Inhalation; bp Disposition Summary: 03/03/22 12:17 Discharge Ordered Location: Home ma2 Condition: Stable ma2 Diagnosis - Acute bronchitis, unspecified ma2 - COPD/ Chronic obstructive pulmonary disease, unspecified ma2 Followup: ma2 - With: Private Physician - When: Tomorrow - Reason: Wound Recheck, If symptoms return Discharge Instructions: - Discharge Summary Sheet ma2 - Acute Bronchitis, Adult ma2 Forms: - Medication Reconciliation Form ma2 - Thank You Letter ma2 - Antibiotic Education ma2 - Prescription Opioid Use ma2 Prescriptions: - Zithromax Z-Tito 250 mg Oral Tablet - take 1 tablet by ORAL route as directed for 5 days Day 1 - take two (2) tablets ma2 one time. Day 2, 3, 4 , 5 take one (1) tablet once daily.; 6 tablet; Refills: 0, Product Selection Permitted - Medrol (Tito) 4 mg Oral Tablets, Dose Pack - take 1 tablet by ORAL route as directed - follow package instructions; 1 ma2 packet; Refills: 0, Product Selection Permitted Signatures: Dispatcher [employer] Remy Hi RN RN bp Antonietta Keenan MD MD ma2 Nikunj Echols ab2
[2022-03-03 13:34] VITALS: TEMP 97.9
[2022-03-03 13:39] VITALS: BP 110/49; O2SAT 97
== END 2022-03-03 13:28 | disposition home or self-care (01) ==
LOC: ER 10:14
DX: J20.9 Acute bronchitis, unspecified (principal); J44.9 Chronic obstructive pulmonary disease, unspecified; Z20.822 Contact with and (suspected) exposure to COVID-19
CPT/HCPCS: 96365; 93005; 87040 ×2; 85025; 80048; 36415; 83735; 82550; 85610; 85379; 80076; 83605; 85730; 82553; 83690; 84145; 83880; 71045; 96375; 99285; 96366; U0003; J0456; J7050; J2930

== ENCOUNTER 2022-04-11 03:56 | Inpatient (IN) | payer OTHER ==
[2022-04-11] MEDS ORDERED: LEVALBUTEROL 1.25 MG/3 ML NEB ONE (04:24)
[2022-04-11] MEDS ORDERED: METHYLPREDNISOLONE 125 MG INJ ONE (04:24)
[2022-04-11 04:33] LABS: Blood Gas Oxyhemoglobin 94.4 % (94-97); Blood O2 Saturation 96.5 % (92-98.5)
[2022-04-11 04:33] LABS: Absolute Lymphocytes (CBC) 1.1 K/uL (0.7-4.9); Lymphocytes % 11.7 % (15.3-44.8); MPV 8.4 fL (7.6-11.3)
[2022-04-11 04:37] LABS: Protime INR 0.98
[2022-04-11 04:47] LABS: Albumin 3.6 g/dL (3.4-5.0); Bilirubin Total 1.1 mg/dL (0.2-1.0); Potassium 4.4 mmol/L (3.5-5.1); Protein, Total 7.4 g/dL (6.4-8.2); Troponin High Sensitivity 7.6 pg/mL (<58.9)
--- NOTE | 2022-04-11 04:47 | ER ---
Nurse's Notes [facility] Name: Saad Singh Age: 86 yrs Sex: Male : 1935 Arrival Date: 04/11/2022 Time: 03:59 Bed 18 Private MD: Diagnosis: COPD/ Chronic obstructive pulmonary disease with (acute) exacerbation;Hypoxemia Presentation: 04/11 04:10 Chief complaint: EMS states: pt has been coughing up blood and been noncompliant with sm5 his meds. Coronavirus screen: cough unrelated to allergies, shortness of breath. Ebola Screen: No symptoms or risks identified at this time. Initial Sepsis Screen: Does the patient meet any 2 criteria? RR > 20 per min. HR > 90 bpm. Yes Does the patient have a suspected source of infection? Yes: Productive cough/pneumonia. Risk Assessment: Do you want to hurt yourself or someone else? Patient reports no desire to harm self or others. Onset of symptoms was April 11, 2022. 04:10 Method Of Arrival: EMS: [place] [id number] 04:10 Acuity: COREY 3 sm5 Triage Assessment: 04:12 General: Appears in no apparent distress. Behavior is cooperative. Pain: Denies pain. sm5 Neuro: No deficits noted. Reyes Agitation-Sedation Scale (RASS): 0 - Alert and Calm Level of Consciousness is awake, alert, obeys commands. Cardiovascular: No deficits noted. Capillary refill < 3 seconds Patient's skin is warm and dry. Respiratory: Reports cough that is productive, Airway is patent Trachea midline Respiratory effort is even, labored, Sputum is thick, clear blood streaked. GI: No deficits noted. 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 - Social history:: Smoking status: Patient reports the use of cigarette tobacco products, smokes one pack cigarettes per day. Patient/guardian denies using alcohol, street drugs. - Family history:: not pertinent. - Hospitalizations: : No recent hospitalization is reported. Screenin:15 Abuse screen: Denies threats or abuse. Denies injuries from another. Nutritional sm5 screening: No deficits noted. Tuberculosis screening: No symptoms or risk factors identified. Fall Risk None identified. Assessment: 04:15 Reassessment: see triage assessment. 5 05:28 Reassessment: No changes from previously documented assessment. Patient and/or family 5 updated on plan of care and expected duration. Pain level reassessed. 06:56 Reassessment: Patient states symptoms have improved. 5 07:00 Reassessment: No changes from previously documented assessment. Report received from [facility] shiftman RN. Waiting on bed assignment. . Vital Signs: 04:10 BP 150 / 65; Pulse 106; Resp 22; Temp 97.7; Pulse Ox 94% on 2 lpm NC; Weight 55.34 kg; 5 Height 5 ft. 10 in. (177.80 cm); 04:41 BP 112 / 62; Pulse 104; Resp 20; Pulse Ox 100% on 8% Nebulizer Mask; 5 05:28 BP 106 / 48; Pulse 105; Resp 19; Pulse Ox 100% on 2 lpm NC; 5 06:30 BP 105 / 46; Pulse 97; Resp 19; Pulse Ox 100% on 2 lpm NC; sm5 07:06 BP 102 / 52; Pulse 99; Resp 20; Temp 97.8; Pulse Ox 100% on 2 lpm NC; Pain 0/10; ll1 04:10 Body Mass Index 17.51 (55.34 kg, 177.80 cm) 5 ED Course: 03:59 Patient arrived in ED. ds4 04:00 Chandu Foreman MD is Attending Physician. rn 04:07 Era Lawson, DARSHAN is Primary Nurse. 5 04:12 Triage completed. 5 04:12 Arm band placed on right wrist. sm5 04:15 Maintain EMS IV. Dressing intact. Good blood return noted. Site clean \T\ dry. Gauge \T\ 5 site: 20 L forearm. 04:16 Inserted saline lock: 22 gauge in right wrist, using aseptic technique. sm5 04:16 Troponin High Sensitivity Sent. sm5 04:16 BNP Sent. sm5 04:16 Blood Culture Adult (2) Sent. sm5 04:16 CBC with Diff Sent. sm5 04:16 CMP Sent. sm5 04:16 Lactate Sent. sm5 04:16 Protime (+inr) Sent. sm5 04:16 Ptt, Activated Sent. sm5 04:18 Chest Single View XRAY In Process Unspecified. EDMS 04:24 Patient has correct armband on for positive identification. Bed in low position. Call sm5 light in reach. Side rails up X2. Client placed on continuous cardiac and pulse oximetry monitoring. NIBP monitoring applied. 04:46 Antonietta Bautista MD is Hospitalizing Provider. rn 05:30 No provider procedures requiring assistance completed. sm5 07:41 Primary Nurse role handed off by Era Lawson RN jl7 07:47 Madhu Schultz, DARSHAN is Primary Nurse. ll1 07:47 Patient admitted, IV remains in place. ll1 Administered Medications: 04:23 Drug: SOLU-Medrol (methylPrednisoLONE) 125 mg Route: IVP; Site: left forearm; sm5 05:56 Follow up: Response: No adverse reaction 5 04:23 Drug: Xopenex (levalbuterol) (3) 1.25 mg Route: Inhalation; sm5 07:07 Follow up: Response: No adverse reaction 1 04:23 Drug: NS 0.9% 500 ml Route: IV; Rate: bolus; Site: left forearm; sm5 05:00 Follow up: IV Status: Completed infusion; IV Intake: 500ml sm5 05:55 Drug: NS 0.9% 500 ml Route: IV; Rate: bolus; Site: left forearm; sm5 06:56 Follow up: IV Status: Completed infusion; IV Intake: 500ml 5 Medication: 05:30 VIS not applicable for this client. sm5 Intake: 05:00 IV: 500ml; Total: 500ml. sm5 06:56 IV: 500ml; Total: 1000ml. 5 Outcome: 04:47 Decision to Hospitalize by Provider. rn 07:47 Admitted to ER Hold. Please see [facility] for further documentation. ll1 07:47 Condition: stable 07:47 Instructed on the need for admit. 10:27 Patient left the ED. ll1 Signatures: Dispatcher [employer] EDMS Chandu Foreman MD MD rn Swanson, Donovan ds4 [employer] RN RN [id number] Madhu Schultz RN RN ll1 Era Lawson, RN RN sm5 Corrections: (The following items were deleted from the chart) 04:15 04:10 BP 150 / 65; Pulse 106bpm; Resp 22bpm; 55.34 kg; Height 5 ft. 10 in.; BMI: 17.5; [place] [id number] 04:24 04:10 BP 150 / 65; Pulse 106bpm; Resp 22bpm; Temp 97.7F; 55.34 kg; Height 5 ft. 10 in.; 5 BMI: 17.5; [facility] 05:55 05:28 BP 106 / 48; Pulse 105bpm; Resp 19bpm; Pulse Ox 100% RA; [place] [id number] 07:48 07:06 BP 102 / 52; Pulse 99bpm; Resp 20bpm; Pulse Ox 100% 2 lpm Nasal Cannula; ll1 ll1
--- NOTE | 2022-04-11 04:47 | EDPHYS ---
Physician Documentation [facility] Name: Saad Singh Age: 86 yrs Sex: Male : 1935 Arrival Date: 04/11/2022 Time: 03:59 Bed 18 Private MD: ED Physician Chandu Foreman HPI: 04/11 04:01 This 86 yrs old Male presents to ER via Unassigned with complaints of sob. rn 04:01 The patient has shortness of breath at rest, with light activity. Onset: The rn symptoms/episode began/occurred 4 day(s) ago. Duration: The symptoms are continuous. The patient's shortness of breath is aggravated by coughing, talking, is alleviated by nothing. Associated signs and symptoms: Pertinent positives: productive cough, hemoptysis, Pertinent negatives: fever. Severity of symptoms: At their worst the symptoms were moderate in the emergency department the symptoms are unchanged. The patient has experienced similar episodes in the past. The patient has not recently seen a physician. EMS reports 86% oxygen on RA, given albuterol and atrovent treatment without much improvement. Pt reports cough and small amounts of blood in cough recently. Denies chest pain. Not on home O2. 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 - Social history:: Smoking status: Patient reports the use of cigarette tobacco products, smokes one pack cigarettes per day. Patient/guardian denies using alcohol, street drugs. - Family history:: not pertinent. - Hospitalizations: : No recent hospitalization is reported. ROS: 04:01 Constitutional: Negative for fever, chills, and weight loss, Eyes: Negative for injury, rn pain, redness, and discharge, Neck: Negative for injury, pain, and swelling, Cardiovascular: Negative for chest pain, palpitations, and edema, Respiratory: + cough, + hemoptysis, + wheezing, + sob Abdomen/GI: Negative for abdominal pain, nausea, vomiting, diarrhea, and constipation, MS/Extremity: Negative for injury and deformity, Skin: Negative for injury, rash, and discoloration, Neuro: Negative for headache, numbness, tingling, and seizure. Exam: 04:01 Constitutional: Thin male, hard of hearing, awake and alert Head/Face: Normocephalic, rn atraumatic. Eyes: Unequal pupils, L>R ENT: NO stridor, dry MM Cardiovascular: Tachycardic, regular, no cyanosis Respiratory: + mild tachypnea, no retractions, wheezing and coarse breath sounds bilaterally Abdomen/GI: Soft, non-tender Skin: Warm, dry MS/ Extremity: Pulses equal, no cyanosis. Neuro: Awake and alert, GCS 15 Vital Signs: 04:10 BP 150 / 65; Pulse 106; Resp 22; Temp 97.7; Pulse Ox 94% on 2 lpm NC; Weight 55.34 kg; 5 Height 5 ft. 10 in. (177.80 cm); 04:41 BP 112 / 62; Pulse 104; Resp 20; Pulse Ox 100% on 8% Nebulizer Mask; [facility] [place] 05:28 BP 106 / 48; Pulse 105; Resp 19; Pulse Ox 100% on 2 lpm NC; [facility] [place] 06:30 BP 105 / 46; Pulse 97; Resp 19; Pulse Ox 100% on 2 lpm NC; [facility] [place] 07:06 BP 102 / 52; Pulse 99; Resp 20; Temp 97.8; Pulse Ox 100% on 2 lpm NC; Pain 0/10; ll1 04:10 Body Mass Index 17.51 (55.34 kg, 177.80 cm) [facility] [place] MDM: 04:00 Patient medically screened. rn 04:45 Differential diagnosis: Bronchitis Chronic Obstructive Pulmonary Disease pneumonia, rn Pneumothorax pulmonary edema, Pulmonary Embolism reactive airway disease, Sepsis. Data reviewed: vital signs, nurses notes, lab test result(s), radiologic studies, plain films, and as a result, I will admit patient. Counseling: I had a detailed discussion with the patient and/or guardian regarding: the historical points, exam findings, and any diagnostic results supporting the discharge/admit diagnosis, lab results, radiology results, the need for further work-up and treatment in the hospital. Response to treatment: the patient's symptoms have mildly improved after treatment, and as a result, I will admit patient. Admission orders: after a detailed discussion of the patient's condition and case, the admit orders are written by me. 04/11 04:01 Order name: Blood Culture Adult (2) rn 04/11 04:01 Order name: CBC with Diff; Complete Time: 04:47 rn 04/11 04:01 Order name: CMP; Complete Time: 04:51 rn 04/11 04:01 Order name: Lactate; Complete Time: 04:51 rn 04/11 04:01 Order name: Protime (+inr); Complete Time: 04:39 rn 04/11 04:01 Order name: Ptt, Activated; Complete Time: 04:39 rn 04/11 04:01 Order name: Chest Single View XRAY 04/11 04:01 Order name: ABG; Complete Time: 04:39 rn 04/11 04:01 Order name: SARS-COV-2 RT PCR (Document "Date of Onset" if Symptomatic) 04/11 04:01 Order name: Flu; Complete Time: 07:37 rn 04/11 04:01 Order name: BNP; Complete Time: 04:51 rn 04/11 04:01 Order name: Troponin High Sensitivity; Complete Time: 04:51 rn 04/11 04:40 Order name: CT Chest For PE Angio 04/11 04:42 Order name: Glucose, Ancillary Testing; Complete Time: 04:47 EDMS 04/11 04:01 Order name: Accucheck; Complete Time: 04:42 rn 04/11 04:01 Order name: Cardiac monitoring; Complete Time: 04:16 rn 04/11 04:01 Order name: EKG - Nurse/Tech; Complete Time: 04:55 rn 04/11 04:01 Order name: IV Saline Lock - Large Bore; Complete Time: 04:16 rn 04/11 04:01 Order name: Labs collected and sent; Complete Time: 04:16 rn 04/11 04:01 Order name: O2 Per Protocol; Complete Time: 04:16 rn 04/11 04:01 Order name: O2 Sat Monitoring; Complete Time: 04:16 rn Administered Medications: 04:23 Drug: SOLU-Medrol (methylPrednisoLONE) 125 mg Route: IVP; Site: left forearm; sm5 05:56 Follow up: Response: No adverse reaction sm5 04:23 Drug: Xopenex (levalbuterol) (3) 1.25 mg Route: Inhalation; sm5 07:07 Follow up: Response: No adverse reaction ll1 04:23 Drug: NS 0.9% 500 ml Route: IV; Rate: bolus; Site: left forearm; sm5 05:00 Follow up: IV Status: Completed infusion; IV Intake: 500ml sm5 05:55 Drug: NS 0.9% 500 ml Route: IV; Rate: bolus; Site: left forearm; sm5 06:56 Follow up: IV Status: Completed infusion; IV Intake: 500ml sm5 Disposition Summary: 04/11/22 04:47 Hospitalization Ordered Hospitalization Status: Inpatient Admission rn Provider: Antonietta Bautista rn Location: Telemetry/[facility] (Inpatient) rn Condition: Stable rn Problem: new rn Symptoms: have improved rn Bed/Room Type: Standard rn Room Assignment: 219(04/11/22 10:11) iw Diagnosis - COPD/ Chronic obstructive pulmonary disease with (acute) exacerbation rn - Hypoxemia rn Forms: - Medication Reconciliation Form rn - SBAR form rn Signatures: Dispatcher [employer] Jessica Moore RN RN iw Chandu Foreman MD MD rn Arnaldo Toro, TANK WELDER-C [facility]EL[facility] Era Lawson RN RN sm5 Madhu Schultz RN ll1 Corrections: (The following items were deleted from the chart) 10:11 04:47 rn iw
--- NOTE | 2022-04-11 05:02 | P.HP ---
Certification for Inpatient Patient admitted to: Inpatient With expected LOS: >2 Midnights Patient will require the following post-hospital care: None Practitioner: I am a practitioner with admitting privileges, knowledge of patient current condition, hospital course, and medical plan of care. Services: Services provided to patient in accordance with Admission requirements found in Title 42 Section 412.3 of the Code of Federal Regulations <Arnaldo Toro - Last Filed: 04/11/22 04:59> Patient History Date of Service: 04/11/22 Reason for admission: COPD exacerbation History of Present Illness: 86-year-old male history of previous CVA, hypertension, COPD, tobacco abuse presents the emergency department for 4 days of increased cough, sputum, shortness of breath. He is evaluated by EMS in the field found to have room air saturations around 86% with a few droplets of blood in his sputum family reports he did have a recent nosebleed which they believe is related. He was evaluated in the emergency department labs were significant for ABG demonstrating pH 7.32, PCO2 51.1 his COVID test is pending also pending CT PE protocol to rule out pulmonary embolism and evaluate for infectious findings. Patient was given Solu-Medrol, nebulizer treatments in the ER with good response currently tolerated nasal cannula 2 L. Will need to admit for COPD exacerbation, hypoxia. - Past Medical/Surgical History -: CVA -: Hypertension -: COPD -: Tobacco abuse Past Surgical History: Reviewed- Non-Contributory Psychosocial/ Personal History: Patient lives at home with his family - Family History Family History: Reviewed- Non-Contributory - Social History Smoking Status: Current every day smoker Counseled patient to stop smoking for: less than 10 minutes Smoking therapy provided: Yes Alcohol use: No CD- Drugs: No Caffeine use: Yes Place of Residence: Home <Arnaldo Toro - Last Filed: 04/11/22 04:59> Date of Service: 04/11/22 <Antonietta Bautista - Last Filed: 04/11/22 20:15> Allergies No Known Allergies Allergy (Verified 11/04/20 10:36) Home Medications: Amlodipine [Norvasc*] 1 tab PO DAILY 09/28/20 Aspirin [Adult Aspirin Regimen] 1 tab PO DAILY 09/28/20 Losartan Potassium 1 tab PO DAILY 09/28/20 Review of Systems 10-point ROS is otherwise unremarkable Respiratory: Cough, Shortness of Breath, Sputum, Wheezing, As per HPI <Arnaldo Toro - Last Filed: 04/11/22 04:59> Physical Examination - Physical Exam General: Alert, In no apparent distress, Oriented x3 HEENT: Atraumatic, PERRLA, Mucous membr. moist/pink, EOMI, Sclerae nonicteric Neck: Supple, 2+ carotid pulse no bruit, No LAD, Without JVD or thyroid abnormality Respiratory: Diminished, Expiratory wheezes Cardiovascular: No edema, Regular rate/rhythm, Normal S1 S2 Capillary refill: <2 Seconds Gastrointestinal: Normal bowel sounds, No tenderness Musculoskeletal: No tenderness Integumentary: No rashes Neurological: Normal speech, Normal strength at 5/5 x4 extr, Normal tone, Normal affect - Studies Laboratory Data (last 24 hrs) 04/11/22 04:10: PT 10.8, INR 0.98, APTT 38.1 H 04/11/22 04:10: Sodium 136, Potassium 4.4, BUN 15, Creatinine 0.95, Glucose 125 H, Total Bilirubin 1.1 H, AST 8 L, ALT 15, Alkaline Phosphatase 138 H 04/11/22 04:10: WBC 9.8, Hgb 13.2 L, Hct 40.0, Plt Count 297 <Arnaldo Toro - Last Filed: 04/11/22 04:59> - Studies Laboratory Data (last 24 hrs) 04/11/22 04:10: PT 10.8, INR 0.98, APTT 38.1 H 04/11/22 04:10: Sodium 136, Potassium 4.4, BUN 15, Creatinine 0.95, Glucose 125 H, Total Bilirubin 1.1 H, AST 8 L, ALT 15, Alkaline Phosphatase 138 H 04/11/22 04:10: WBC 9.8, Hgb 13.2 L, Hct 40.0, Plt Count 297 Microbiology Data (last 24 hrs): 04/11/22 03:55 Blood - Blood Anaerobic Blood Culture - Final 04/11/22 04:10 Blood - Blood Anaerobic Blood Culture - Final 04/11/22 04:20 Nasopharnyx Influenza Type A Antigen Screen - Final 04/11/22 04:20 Nasopharnyx Influenza Type B Antigen Screen - Final <Antonietta Bautista - Last Filed: 04/11/22 20:15> Assessment and Plan - Plan Assessment: Acute hypoxic respiratory failure secondary to COPD with exacerbation Hypertension History of CVA Tobacco abuse Plan: Acute hypoxic respiratory failure secondary to COPD with exacerbation: Supplemental oxygen as needed, D-dimer saturations, scheduled nebs, IV steroids, ICS. Pulmonology consult in place continue with [place], will obtain sputum culture. Appreciate further input from pulmonology. Hypertension: Continue home medications History of CVA: Continue home medications Tobacco abuse: Counseled on need for tobacco cessation we will provide with as needed NicoDerm patch. Smokes 1 pack a day. DVT PPX: Lovenox Code status: Full Discharge Plan: Home Plan to discharge in: 72 Hours - Advance Directives Does patient have a Living Will: No Does patient have a Durable POA for Healthcare: No - Code Status/Comfort Care Code Status Assessed: Yes (Full code) Critical Care: No Time Spent Managing Pts Care (In Minutes): 70 <Arnaldo Toro - Last Filed: 04/11/22 04:59> Date of Service: 04/11/22 Subjective: HPI as mentioned above Physical Examination: Vitals: Afebrile vital signs are stable Physical exam: Cardiovascular: Within normal limits. Lungs: Within normal limits Abdomen: Within normal limits Neuro: Awake, alert, oriented to person place and time Assessment: 1. Acute COPD exacerbation Plan: 1. Continue with current plan of care as mentioned above <Antonietta Bautista - Last Filed: 04/11/22 20:15>
[2022-04-11] MEDS ORDERED: BENZONATATE 100 MG CAP PO PRN (07:14)
[2022-04-11] MEDS ORDERED: NA CHLORIDE 0.9% 1,000 ML IV SCH (07:14)
[2022-04-11] MEDS ORDERED: ACETAMINOPHEN 500 MG TAB PO PRN (07:14)
[2022-04-11] MEDS ORDERED: ONDANSETRON 4 MG/2 ML VIAL IV PRN (07:14)
[2022-04-11] MEDS ORDERED: NICOTINE 14 MG/PAT TD PRN (07:41)
[2022-04-11 07:42] VITALS: BMI 17.3
[2022-04-11] MEDS: IPRATROPIUM BROM 0.5MG/2.5ML NEB SCH ×4 (08:00→20:00)
[2022-04-11] MEDS: ALBUTEROL 2.5 MG/3 ML NEB SOL NEB SCH ×4 (08:00→20:00)
[2022-04-11] MEDS: ASPIRIN EC 81 MG TAB PO SCH (08:55)
[2022-04-11] MEDS: DULERA 100/5 (MOMETASONE/FORMOTEROL) INHALER IH SCH ×2 (08:55→21:00)
[2022-04-11] MEDS: ENOXAPARIN 40 MG/0.4 ML SQ SCH (08:56)
[2022-04-11] MEDS ORDERED: METHYLPREDNISOLONE 40 MG INJ IV SCH (09:00)
--- NOTE | 2022-04-11 09:54 | P.CNS ---
Date of Consult: 04/11/22 Reason for Consult: COPD exacerbation Chief Complaint: COPD exacerbation History of Present Illness: Patient is 86 years of age with a history of stroke hypertension COPD not on the treatment of any physician recently started himself on a nebulizer admitted with hypoxemia worsening dyspnea continues to smoke still complaining of shortness of breath Allergies No Known Allergies Allergy (Verified 11/04/20 10:36) Home Medications: Amlodipine [Norvasc*] 1 tab PO DAILY 09/28/20 Aspirin [Adult Aspirin Regimen] 1 tab PO DAILY 09/28/20 Losartan Potassium 1 tab PO DAILY 09/28/20 - Past Medical/Surgical History -: CVA -: Hypertension -: COPD -: Tobacco abuse Psychosocial/ Personal History: Patient lives at home with his family - Social History Smoking Status: Current every day smoker Alcohol use: No CD- Drugs: No Caffeine use: Yes Place of Residence: Home Review of Systems 10-point ROS is otherwise unremarkable General: Weakness Respiratory: Shortness of Breath Physical Examination Temp Pulse Resp BP Pulse Ox 97.8 F 99 H 20 106/51 L 100 04/11/22 08:00 04/11/22 08:00 04/11/22 08:00 04/11/22 08:00 04/11/22 08:00 General: Alert, Oriented x3, Moderate distress Respiratory: Clear to auscultation bilaterally, Expiratory wheezes Cardiovascular: No edema, Regular rate/rhythm Gastrointestinal: Normal bowel sounds, Soft and benign Musculoskeletal: No clubbing, Contractures (Right upper arm is contracted) Laboratory Data (last 24 hrs) 04/11/22 04:10: PT 10.8, INR 0.98, APTT 38.1 H 04/11/22 04:10: Sodium 136, Potassium 4.4, BUN 15, Creatinine 0.95, Glucose 125 H, Total Bilirubin 1.1 H, AST 8 L, ALT 15, Alkaline Phosphatase 138 H 04/11/22 04:10: WBC 9.8, Hgb 13.2 L, Hct 40.0, Plt Count 297 - Problems (1) COPD exacerbation Current Visit: Yes Status: Acute Plan: Patient is 86 years of age heavy smoker history of stroke COPD not under the care of any physician admitted with worsening dyspnea exacerbation of COPD no evidence of thromboembolism or pneumonia is mildly hypercapnic oxygenation satisfactory check daily room air pulse ox change to p.o. prednisone possible discharge tomorrow continue with inhalers evaluate for home oxygen possible discharge tomorrow follow-up with me as an outpatient he does have a history of stroke counseled about smoking
--- NOTE | 2022-04-11 18:00 | RAD REPORT ---
EXAM DESCRIPTION: CT - Chest For Pe Angio - 04/11/2022 6:48 am CLINICAL HISTORY: The patient is 86 years old and is Male; Pulmonary embolism (PE) suspected, high p [place] COPD TECHNIQUE: Axial computed tomographic angiography images of the chest with intravenous contrast. S agittal and coronal reformatted images were created and reviewed. This CT exam was performed using one or more of the following dose reduction techniques: automated exposure control, adjustment of t he mA and/or kV according to patient size, and/or use of iterative reconstruction technique. MIP re constructed images were created and reviewed. COMPARISON: No relevant prior studies available. FINDINGS: Pulmonary arteries: No PE identified. Aorta: Aortic atherosclerotic changes. No thoracic aortic aneurysm. Great vessels of aortic arch: High-grade stenosis or slow flow in the proximal left common caroti d artery. Lungs: Areas of peribronchial thickening in the right lower lobe with tree-in-bud opacities sugge sting small airways infection. Mild upper lobe centrilobular emphysema with pleuroparenchymal scarring at the apices. No focal consolidation. Pleural space: No pleural effusion or pneumothorax. Heart: Small heart size. No significant pericardial fluid. No evidence of RV dysfunction. Bones/joints: Degenerative changes in the lower thoracic/upper lumbar spine with mild scoliosis. No acute compression fracture. No acute fracture visualized. No dislocation. Soft tissues: Unremarkable. Lymph nodes: Unremarkable. No enlarged lymph nodes. IMPRESSION: 1. No PE identified. 2. Areas of peribronchial thickening in the right lower lobe with tree-in-bud opacities suggesting small airways infection. 3. High-grade stenosis or slow flow in the proximal left common carotid artery. Follow-up with Dopp ler ultrasound or CTA if clinically warranted. 4. Mild upper lobe centrilobular emphysema with pleuroparenchymal scarring at the apices. Electronically signed by: Gabriela King MD 04/11/2022 6:33 AM CDT Due to temporary technical issues with the PACS/Fluency reporting system, reports are being signed by the in house radiologists without review as a courtesy to insure prompt reporting. The interpreting radiologist is fully responsible for the content of the report.
--- NOTE | 2022-04-11 18:02 | RAD REPORT ---
EXAM DESCRIPTION: RAD - Chest Single View - 04/11/2022 4:17 am CLINICAL HISTORY: 86 years Male, COPD COMPARISON: None. FINDINGS: Cardiomediastinal silhouette is normal. Right greater than left bibasilar interstitial opacities. No focal consolidation, pneumothorax or pleural effusion. Osseous structures are unremarkable. IMPRESSION: Right greater than left bibasilar airspace opacities which could be due to atelectasis v ersus infiltrate. Electronically signed by: Miller Whalen MD 04/11/2022 5:44 AM CDT Due to temporary technical issues with the PACS/Fluency reporting system, reports are being signed by the in house radiologists without review as a courtesy to insure prompt reporting. The interpreting radiologist is fully responsible for the content of the report.
[2022-04-11] MEDS: predniSONE 20 MG TAB PO SCH (21:08)
[2022-04-11] MEDS: ATORVASTATIN 40 MG TAB PO SCH (21:08)
[2022-04-12] MEDS: ALBUTEROL 2.5 MG/3 ML NEB SOL NEB SCH ×4 (01:15→20:40)
[2022-04-12] MEDS: IPRATROPIUM BROM 0.5MG/2.5ML NEB SCH ×4 (01:15→20:40)
[2022-04-12 05:47] LABS: Absolute Lymphocytes (CBC) 0.5 K/uL (0.7-4.9); Lymphocytes % 3.1 % (15.3-44.8); MPV 8.8 fL (7.6-11.3); RBC Red Blood Cell Count 3.24 M/uL (4.33-5.43)
[2022-04-12 06:04] LABS: Albumin 2.8 g/dL (3.4-5.0); Bilirubin Total 0.6 mg/dL (0.2-1.0); Magnesium 2.2 mg/dL (1.8-2.4); Potassium 3.9 mmol/L (3.5-5.1); Protein, Total 5.9 g/dL (6.4-8.2)
[2022-04-12 08:10] LABS: Platelet Estimate ADEQ
[2022-04-12 08:11] LABS: Blood Morphology Comment NOT SEEN (NOT SEEN)
[2022-04-12] MEDS ORDERED: POTASSIUM 25 MEQ EFFERV TAB PO ONE (09:00)
[2022-04-12] MEDS: DULERA 100/5 (MOMETASONE/FORMOTEROL) INHALER IH SCH ×2 (09:00→21:00)
[2022-04-12] MEDS: ENOXAPARIN 40 MG/0.4 ML SQ SCH (10:02)
[2022-04-12] MEDS: predniSONE 20 MG TAB PO SCH ×2 (10:02→22:07)
[2022-04-12] MEDS: ASPIRIN EC 81 MG TAB PO SCH (10:02)
--- NOTE | 2022-04-12 12:19 | EKG ---
Test Date: 2022-04-11 Test Time: 04:45:14 Public Relations Account Executive: SHREYA MEASUREMENT RESULTS: Intervals: Rate: 110 OK: 162 QRSD: 88 QT: 358 QTc: 484 [place]: P: 64 OK: 162 QRS: 78 T: 95 INTERPRETIVE STATEMENTS: Sinus tachycardia Septal infarct, age undetermined Abnormal ECG Compared to ECG 03/03/2022 10:51:31 Sinus rhythm no longer present Ventricular premature complex(es) no longer present ST (T wave) deviation no longer present Possible ischemia no longer present Myocardial infarct finding still present Electronically Signed On 04-12-22 12:16:45 CDT by Orion Mcbride
--- NOTE | 2022-04-12 17:04 | P.PN ---
Subjective Date of Service: 04/12/22 Chief Complaint: COPD exacerbation Subjective: Improving (Doing well improved) Review of Systems 10-point ROS is otherwise unremarkable Respiratory: Shortness of Breath Physical Examination - Vital Signs Temperature: 98.3 F Blood Pressure: 86/50 Pulse: 100 Respirations: 16 Pulse Ox (%): 92 - Physical Exam General: Alert, In no apparent distress Respiratory: Clear to auscultation bilaterally, Diminished Cardiovascular: No edema, Regular rate/rhythm - Studies Microbiology Data (last 24 hrs): 04/11/22 03:55 Blood - Blood Anaerobic Blood Culture - Final 04/11/22 04:10 Blood - Blood Anaerobic Blood Culture - Final Assessment And Plan - Current Problems (Diagnosis) (1) COPD exacerbation Current Visit: Yes Status: Acute Plan: Ph has improved. Plan for Discharge on pred 10 BID for 2 wks and Dulera/ Check RA pulse Ox BP low Discharge Plan: Home Plan to discharge in: 24 Hours
[2022-04-12] MEDS: ATORVASTATIN 40 MG TAB PO SCH (22:07)
[2022-04-13] MEDS: IPRATROPIUM BROM 0.5MG/2.5ML NEB SCH ×2 (01:36→08:00)
[2022-04-13] MEDS: ALBUTEROL 2.5 MG/3 ML NEB SOL NEB SCH ×2 (01:37→07:15)
[2022-04-13 05:35] LABS: Absolute Lymphocytes (CBC) 0.4 K/uL (0.7-4.9); Hematocrit 31.7 % (39.6-49.0); Lymphocytes % 2.9 % (15.3-44.8); MPV 8.7 fL (7.6-11.3); RBC Red Blood Cell Count 3.25 M/uL (4.33-5.43)
[2022-04-13 05:44] LABS: Albumin 2.8 g/dL (3.4-5.0); Bilirubin Total 0.4 mg/dL (0.2-1.0); Magnesium 2.1 mg/dL (1.8-2.4); Potassium 3.6 mmol/L (3.5-5.1); Protein, Total 5.7 g/dL (6.4-8.2)
[2022-04-13 08:26] VITALS: O2SAT 92
[2022-04-13 08:48] VITALS: BP 128/58; TEMP 98
--- NOTE | 2022-04-13 08:50 | P.PN ---
Subjective Date of Service: 04/12/22 Subjective: No new changes, No C/O voiced, Improving Arrange for home oxygen Review of Systems 10-point ROS is otherwise unremarkable Physical Examination - Vital Signs Temperature: 98.0 F Blood Pressure: 128/58 Pulse: 100 Respirations: 14 Pulse Ox (%): 92 - Physical Exam General: Alert, In no apparent distress HEENT: Atraumatic, PERRLA, EOMI Neck: Supple, JVD not distended Respiratory: Clear to auscultation bilaterally, Normal air movement Cardiovascular: Regular rate/rhythm, Normal S1 S2 Gastrointestinal: Normal bowel sounds, No tenderness Musculoskeletal: No tenderness Integumentary: No rashes Neurological: Normal speech, Normal tone, Normal affect Lymphatics: No axilla or inguinal lymphadenopathy - Studies Microbiology Data (last 24 hrs): 04/11/22 03:55 Blood - Blood Anaerobic Blood Culture - Final 04/11/22 04:10 Blood - Blood Anaerobic Blood Culture - Final Medications List Reviewed: Yes Assessment & Plan - Problems (Diagnosis) (1) COPD with acute exacerbation Current Visit: Yes Status: Acute - Plan Plan: 1. Continue with albuterol and Atrovent nebs 2. Continue with IV steroids 3. Outpatient pulmonary function testing 4. Pulmonary follow-up if symptoms do not improve 5. Room air O2 sats 6. Repeat chest x-ray in the morning 7. Peak flows as needed 8. GI and DVT prophylaxis - Advance Directives Does patient have a Living Will: No Does patient have a Durable POA for Healthcare: No
[2022-04-13] MEDS: DULERA 100/5 (MOMETASONE/FORMOTEROL) INHALER IH SCH (09:00)
[2022-04-13] MEDS ORDERED: POTASSIUM CL SA 10 MEQ TAB PO ONE (09:00)
[2022-04-13] MEDS: ENOXAPARIN 40 MG/0.4 ML SQ SCH (09:36)
[2022-04-13] MEDS: predniSONE 20 MG TAB PO SCH (09:37)
[2022-04-13] MEDS: ASPIRIN EC 81 MG TAB PO SCH (09:38)
== END 2022-04-13 10:42 | disposition home health service (06) | DRG 190 ==
LOC: ER 03:56 → ERHOLD 04:55 → 2ND 10:24
PROVIDERS: ADMIT Hospitalist; ATTEND Hospitalist
DX: J44.1 Chronic obstructive pulmonary disease with (acute) exacerbation (principal); J96.01 Acute respiratory failure with hypoxia; I10 Essential (primary) hypertension; F17.210 Nicotine dependence, cigarettes, uncomplicated; Z86.73 Personal history of transient ischemic attack (TIA), and cerebral infarction without residual deficits; Z20.822 Contact with and (suspected) exposure to COVID-19
CPT/HCPCS: 36415; 71045; 71275; 80053; 82805; 82947; 83605; 83735; 83880; 84484; 85025; 85610; 85730; 87040; 87804; 93005; 94010; 94640; 96361; 96374; 99285; J1650; J2930; J3535; J7512; Q9967; U0003

== ENCOUNTER 2022-06-16 06:17 | Inpatient (IN) | payer OTHER ==
[2022-06-16] MEDS ORDERED: LEVALBUTEROL 1.25 MG/3 ML NEB ONE (06:41)
[2022-06-16] MEDS ORDERED: MAGNESIUM SULFATE 1 gm IVPB 1 GM/100 ML BAG IV ONE (06:41)
[2022-06-16 06:42] LABS: Absolute Lymphocytes (CBC) 1.4 K/uL (0.7-4.9); Hematocrit 34.8 % (39.6-49.0); Lymphocytes % 19.7 % (15.3-44.8); MCV 95.9 fL (80-100); MPV 8.5 fL (7.6-11.3); RBC Red Blood Cell Count 3.63 M/uL (4.33-5.43)
[2022-06-16 06:57] LABS: Magnesium 2.3 mg/dL (1.8-2.4); Potassium 4.2 mmol/L (3.5-5.1)
--- NOTE | 2022-06-16 08:49 | RAD REPORT ---
EXAM DESCRIPTION: US - Extremity Venous Uni Ltd - 06/16/2022 7:06 am CLINICAL HISTORY: SWELLING Leg swelling and edema. COMPARISON: No comparisons FINDINGS: Right lower extremity venous system was interrogated with Doppler technique. Normal flow, compressibility and augmentation was noted. There is no DVT present. IMPRESSION: No evidence of right lower extremity deep venous thrombosis.
--- NOTE | 2022-06-16 08:49 | RAD REPORT ---
EXAM DESCRIPTION: RAD - Chest Single View - 06/16/2022 7:24 am CLINICAL HISTORY: DYSPNEA Chest pain. COMPARISON: Chest Single View dated 04/11/2022; Chest Single View dated 03/03/2022; Chest Single View dated 07/13/2020 FINDINGS: Portable technique limits examination quality. The lungs are emphysematous but grossly clear. The heart is normal in size. No displaced fractures. IMPRESSION: Prominent COPD.
--- NOTE | 2022-06-16 09:26 | ER ---
Nurse's Notes [facility] Name: Saad Singh Age: 86 yrs Sex: Male : 1935 Arrival Date: 06/16/2022 Time: 06:19 Bed 7 Private MD: Diagnosis: COPD/ Chronic obstructive pulmonary disease with (acute) exacerbation Presentation: 06/16 06:19 Chief complaint: EMS states: From home, called for SOB. He has been ill for a couple of tw5 days. Around 0100 He was really short of breath. Upon arrival 87 RA. He took two albuterol treatments at home.". 06:19 Method Of Arrival: EMS: [facility] tw5 06:42 Coronavirus screen: Vaccine status: Patient reports receiving the 2nd dose of the covid tw5 vaccine. unknown. Ebola Screen: Patient negative for fever greater than or equal to 101.5 degrees Fahrenheit, and additional compatible Ebola Virus Disease symptoms Patient denies exposure to infectious person. Patient denies travel to an Ebola-affected area in the 21 days before illness onset. Initial Sepsis Screen: Does the patient meet any 2 criteria? RR > 20 per min. HR > 90 bpm. Does the patient have a suspected source of infection? Yes: Productive cough/pneumonia If YES to both, name of provider notified: Chandu Foreman MD. Risk Assessment: Do you want to hurt yourself or someone else? Patient reports no desire to harm self or others. Onset of symptoms was June 16, 2022 at 01:00. 06:42 Acuity: COREY 2 tw5 Triage Assessment: 06:43 General: Appears uncomfortable, Behavior is appropriate for age. Pain: Denies pain. tw5 Respiratory: Reports shortness of breath at rest air hunger Onset: The symptoms/episode began/occurred this morning, the patient has moderate shortness of breath. 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 - Social history:: Smoking status: Patient reports the use of cigarette tobacco products, denies chronic smoking, but will smoke occasionally. - Family history:: not pertinent. - Hospitalizations: : No recent hospitalization is reported. Screenin:46 Abuse screen: Denies threats or abuse. Denies injuries from another. Nutritional tw5 screening: No deficits noted. Tuberculosis screening: No symptoms or risk factors identified. Fall Risk Secondary diagnosis (15 points) IV access (20 points). Assessment: 06:46 Pain: Denies pain. Cardiovascular: Rhythm is sinus tachycardia. Respiratory: Airway is tw5 patent Trachea midline Respiratory effort is labored, Breath sounds are coarse bilaterally. 06:48 General: Son at the bedside- Maurice Singh. tw5 07:05 Reassessment: No changes from previously documented assessment. REPORT RECEIVED FROM ll1 BUILDING CONSTRUCTION INSPECTOR RN. 08:00 Reassessment: No changes from previously documented assessment. Patient and/or family ll1 updated on plan of care and expected duration. Pain level reassessed. Resting comfortably. 08:56 Reassessment: Patient appears in no apparent distress at this time. Patient and/or ph family updated on plan of care and expected duration. Pain level reassessed. Pt resting w/ eyes closed, family at bedside. 10:00 Reassessment: No changes from previously documented assessment. Patient and/or family ll1 updated on plan of care and expected duration. Pain level reassessed. 11:00 Reassessment: No changes from previously documented assessment. Patient and/or family ll1 updated on plan of care and expected duration. Pain level reassessed. 12:00 Reassessment: No changes from previously documented assessment. Patient and/or family ll1 updated on plan of care and expected duration. Pain level reassessed. 13:00 Reassessment: No changes from previously documented assessment. Patient and/or family ll1 updated on plan of care and expected duration. Pain level reassessed. 13:39 Reassessment: Patient appears in no apparent distress at this time. Patient and/or ph family updated on plan of care and expected duration. Pain level reassessed. Pt asleep w/ equal and unlabored respirations, VSS awaiting room assignment. 14:30 Reassessment: No changes from previously documented assessment. Patient and/or family ll1 updated on plan of care and expected duration. Pain level reassessed. 15:30 Reassessment: No changes from previously documented assessment. Patient and/or family ll1 updated on plan of care and expected duration. Pain level reassessed. Vital Signs: 06:42 BP 121 / 65; Pulse 105; Resp 26; Temp 97.6; Pulse Ox 100% on Nebulizer Mask; Weight tw5 54.43 kg; Height 5 ft. 6 in. (167.64 cm); Pain 0/10; 07:15 BP 112 / 56; Pulse 103; Resp 16; Pulse Ox 100% on 3 lpm NC; ph 08:16 BP 101 / 47; Pulse 96; Resp 20; Pulse Ox 100% on 3 lpm NC; ll1 08:55 BP 103 / 48; Pulse 93; Resp 20; Pulse Ox 100% on 3 lpm NC; ph 10:00 BP 97 / 51; Pulse 82; Resp 20; Pulse Ox 100% on 2.5 lpm NC; ll1 10:45 BP 105 / 54; Pulse 95; Resp 21; Pulse Ox 100% ; ll1 11:30 BP 99 / 81; Pulse 95; Resp 21; Pulse Ox 100% on 2.5 lpm NC; ll1 12:15 BP 94 / 45; Pulse 89; Resp 22; Pulse Ox 100% on 2.5 lpm NC; ll1 13:00 BP 92 / 49; Pulse 85; Resp 21; Pulse Ox 100% on 2.5 lpm NC; ll1 15:52 BP 109 / 56; Pulse 92; Resp 22; Temp 98.1; Pulse Ox 100% on 2.5 lpm NC; ll1 06:42 Body Mass Index 19.37 (54.43 kg, 167.64 cm) ED Course: 06:19 Patient arrived in ED. tw5 06:19 Chandu Foreman MD is Attending Physician. rn 06:31 Luanne Irby is Primary Nurse. 06:41 SARS-COV-2 RT PCR (Document "Date of Onset" if Symptomatic) Sent. 06:41 BMP Sent. 06:41 Blood Culture Adult (2) Sent. 06:41 CBC with Diff Sent. 06:41 Magnesium Sent. 06:41 NT PRO-BNP Sent. 06:41 PT-INR Sent. 06:41 Ptt, Activated Sent. 06:43 Triage completed. 06:43 Arm band placed on Patient placed in an exam room. 06:45 Maintain EMS IV. Dressing intact. Good blood return noted. Site clean \\T\\ dry. Gauge \\T\\ tw 5 site: 20 Left forearm. 06:45 Initial lab(s) drawn, by ED staff, sent to lab. First set of blood cultures drawn by ED tw5 staff, Second set of blood cultures drawn by ED staff. EKG done, by ED staff, reviewed by Chandu Foreman MD COVID swab sent to lab. Initial Neb Treatment Given as ordered Patient was instructed and evaluated on procedure Patient tolerated procedure well without adverse effect. 06:46 Patient has correct armband on for positive identification. Client placed on continuous tw5 cardiac and pulse oximetry monitoring. NIBP monitoring applied. Door closed. Noise minimized. Moved to private room. Warm blanket given. Verbal reassurance given. 07:08 Extremity Venous Uni Ltd US In Process Unspecified. EDMS 07:25 Attending Physician role handed off by Chandu Foreman MD kdr 07:25 Samuel Alvares MD is Attending Physician. kdr 07:26 XRAY CXR (1 view) In Process Unspecified. EDMS 09:24 Kadeem Canales MD is Hospitalizing Provider. kdr 11:37 Primary Nurse role handed off by Luanne Irby ll1 11:37 Madhu Schultz RN is Primary Nurse. 1 15:43 No provider procedures requiring assistance completed. Patient admitted, IV remains in ll1 place. Administered Medications: 06:39 Drug: Xopenex (levalbuterol) (3) 1.25 mg Route: Inhalation; tw5 10:32 Follow up: Response: No adverse reaction; RASS: Alert and Calm (0) 1 06:40 Drug: Magnesium Sulfate 1 grams Route: IVPB; Infused Over: 1 hrs; Site: left forearm; tw5 10:31 Follow up: Response: No adverse reaction; IV Status: Completed infusion; IV Intake: ll1 100ml 10:39 Drug: Albuterol - atroVENT (ipratropium) (3:1) (2.5 mg - 0.5 mg) 3 ml Route: Nebulizer; 1 14:03 Follow up: Response: No adverse reaction [facility] Medication: 08:18 VIS not applicable for this client. 1 Intake: 10:31 IV: 100ml; Total: 100ml. 1 Outcome: 09:25 Decision to Hospitalize by Provider. kdr 15:44 Admitted to Tele accompanied by nurse, room Room 204, with chart, Report called to 1 Oliva Steele RN. 15:44 Condition: stable 15:44 Instructed on the need for admit. 16:23 Patient left the ED. ll1 Signatures: Dispatcher [employer] Samuel Marte MD MD kdr Nieto, Roman, MD MD rn Hall, DARSHAN Castro RN, ph, DARSHAN Leung RN ll1 Luanne Irby tw5 Corrections: (The following items were deleted from the chart) 15:52 15:44 Admitted to Tele accompanied by nurse, room Room 204, with chart, ll1 ll1
--- NOTE | 2022-06-16 09:26 | EDPHYS ---
Physician Documentation [facility] Name: Saad Singh Age: 86 yrs Sex: Male : 1935 Arrival Date: 06/16/2022 Time: 06:19 Bed 7 Private MD: ED Physician Samuel Alvares HPI: 06/16 06:21 This 86 yrs old Male presents to ER via Unassigned with complaints of Shortness Of rn Breath. 06:21 The patient has shortness of breath at rest, with light activity. rn 06:23 Onset: The symptoms/episode began/occurred 1 week(s) ago. Duration: The symptoms are rn continuous. The patient's shortness of breath is aggravated by coughing, exertion, light activity, is alleviated by application of supplemental oxygen. Associated signs and symptoms: Pertinent positives: non-productive cough, Pertinent negatives: chest pain, fever, hemoptysis. Severity of symptoms: At their worst the symptoms were moderate in the emergency department the symptoms are unchanged. The patient has experienced similar episodes in the past. The patient has not recently seen a physician. Historical: - Allergies: 06:43 No Known Allergies; tw5 - PMHx: 06:43 Chronic obstructive lung disease; CVA; Hypertension; Right arm weakness from CVA in 2018; - Immunization history:: Flu vaccine is not up to date. - Social history:: Smoking status: Patient reports the use of cigarette tobacco products, denies chronic smoking, but will smoke occasionally. - Family history:: not pertinent. - Hospitalizations: : No recent hospitalization is reported. ROS: 06:23 Constitutional: Negative for fever, chills, and weight loss, Eyes: Negative for injury, rn pain, redness, and discharge, Neck: Negative for injury, pain, and swelling, Cardiovascular: Negative for chest pain, palpitations, and edema, Respiratory: Negative for pleuritic chest pain Abdomen/GI: Negative for abdominal pain, nausea, vomiting, diarrhea, and constipation, Back: Negative for injury and pain, MS/Extremity: Negative for injury and deformity, Skin: Negative for injury, rash, and discoloration, Neuro: Negative for headache, weakness, numbness, tingling, and seizure. Exam: 06:23 Constitutional: This is a well developed, well nourished patient who is awake, alert, rn moderate tachypnea Head/Face: Normocephalic, atraumatic. Eyes: Periorbital areas with no swelling, redness, or edema. ENT: dry MM, no stridor Respiratory: Moderate tachypnea with coarse bilateral breath sounds and wheezing Abdomen/GI: Soft, non-tender Skin: Warm, dry MS/ Extremity: Pulses equal, no cyanosis. RLE greater circumference than LLE Neuro: Awake and alert, GCS 15 Vital Signs: 06:42 BP 121 / 65; Pulse 105; Resp 26; Temp 97.6; Pulse Ox 100% on Nebulizer Mask; Weight tw5 54.43 kg; Height 5 ft. 6 in. (167.64 cm); Pain 0/10; 07:15 BP 112 / 56; Pulse 103; Resp 16; Pulse Ox 100% on 3 lpm NC; ph 08:16 BP 101 / 47; Pulse 96; Resp 20; Pulse Ox 100% on 3 lpm NC; ll1 08:55 BP 103 / 48; Pulse 93; Resp 20; Pulse Ox 100% on 3 lpm NC; ph 10:00 BP 97 / 51; Pulse 82; Resp 20; Pulse Ox 100% on 2.5 lpm NC; ll1 10:45 BP 105 / 54; Pulse 95; Resp 21; Pulse Ox 100% ; ll1 11:30 BP 99 / 81; Pulse 95; Resp 21; Pulse Ox 100% on 2.5 lpm NC; ll1 12:15 BP 94 / 45; Pulse 89; Resp 22; Pulse Ox 100% on 2.5 lpm NC; ll1 13:00 BP 92 / 49; Pulse 85; Resp 21; Pulse Ox 100% on 2.5 lpm NC; ll1 15:52 BP 109 / 56; Pulse 92; Resp 22; Temp 98.1; Pulse Ox 100% on 2.5 lpm NC; ll1 06:42 Body Mass Index 19.37 (54.43 kg, 167.64 cm) tw5 MDM: 06:19 Patient medically screened. rn 09:25 Data reviewed: vital signs, nurses notes, lab test result(s), radiologic studies. kdr Counseling: I had a detailed discussion with the patient and/or guardian regarding: the historical points, exam findings, and any diagnostic results supporting the discharge/admit diagnosis, lab results, radiology results, the need for further work-up and treatment in the hospital. 06/16 06:20 Order name: BMP; Complete Time: 06:58 rn 06/16 06:20 Order name: Blood Culture Adult (2) rn 06/16 06:20 Order name: CBC with Diff; Complete Time: 06:58 rn 06/16 06:20 Order name: Magnesium; Complete Time: 06:58 rn 06/16 06:20 Order name: NT PRO-BNP; Complete Time: 06:58 rn 06/16 06:20 Order name: PT-INR; Complete Time: 06:58 rn 06/16 06:20 Order name: Ptt, Activated; Complete Time: 06:58 rn 06/16 06:20 Order name: XRAY CXR (1 view); Complete Time: 08:58 rn 06/16 06:20 Order name: EKG; Complete Time: 06:21 rn 06/16 06:26 Order name: Extremity Venous Uni Ltd US; Complete Time: 08:58 rn 06/16 06:26 Order name: SARS-COV-2 RT PCR (Document "Date of Onset" if Symptomatic); Complete Time: rn 08:06/16 06:20 Order name: Cardiac monitoring; Complete Time: 06:41 rn 06/16 06:20 Order name: EKG - Nurse/Tech; Complete Time: 06:41 rn 06/16 06:20 Order name: IV Saline Lock; Complete Time: 06:41 rn 06/16 06:20 Order name: Labs collected and sent; Complete Time: 06:41 rn 06/16 06:20 Order name: O2 Per Protocol; Complete Time: 06:41 rn 06/16 06:20 Order name: O2 Sat Monitoring; Complete Time: 06:41 rn 06/16 14:52 Order name: [facility] Soft (ground); Complete Time: 14:52 ll1 Administered Medications: 06:39 Drug: Xopenex (levalbuterol) (3) 1.25 mg Route: Inhalation; tw5 10:32 Follow up: Response: No adverse reaction; RASS: Alert and Calm (0) ll1 06:40 Drug: Magnesium Sulfate 1 grams Route: IVPB; Infused Over: 1 hrs; Site: left forearm; tw5 10:31 Follow up: Response: No adverse reaction; IV Status: Completed infusion; IV Intake: ll1 100ml 10:39 Drug: Albuterol - atroVENT (ipratropium) (3:1) (2.5 mg - 0.5 mg) 3 ml Route: Nebulizer; ll1 14:03 Follow up: Response: No adverse reaction ll1 Disposition Summary: 06/16/22 09:25 Hospitalization Ordered Hospitalization Status: Observation kdr Provider: Kadeem Canales [facility] kdr Condition: Stable kdr Problem: new kdr Symptoms: have improved kdr Bed/Room Type: Standard [facility] Room Assignment: 204(06/16/22 15:10) Diagnosis - COPD/ Chronic obstructive pulmonary disease with (acute) exacerbation kdr Discharge Instructions: - Discharge Summary Sheet ph Forms: - Medication Reconciliation Form kdr - SBAR form ph Signatures: Dispatcher [employer] Samuel Marte MD MD [facility] Chandu Foreman MD MD rn Smirch, Shelby, RN RN ss Madhu Schultz RN RN [facility] Luanne Irby 5 Corrections: (The following items were deleted from the chart) 15:10 09:25 kdr ss
--- NOTE | 2022-06-16 10:31 | EKG ---
Test Date: 2022-06-16 Test Time: 06:26:40 Centerless Grinder Set Up Operator: ELLIE MEASUREMENT RESULTS: Intervals: Rate: 105 TX: 174 QRSD: 84 QT: 360 QTc: 475 [place]: P: 72 TX: 174 QRS: 43 T: 83 INTERPRETIVE STATEMENTS: Sinus tachycardia with premature atrial complexes with aberrant conduction Anteroseptal infarct, age undetermined Abnormal ECG Compared to ECG 04/11/2022 04:45:14 Atrial premature complex(es) now present Aberrant conduction of supraventricular beat(s) now present Myocardial infarct finding still present Electronically Signed On 06-16-22 10:31:16 CDT by Orion Mcbride
[2022-06-16] MEDS ORDERED: ALBUTEROL 2.5 MG/3 ML NEB SOL ONE (10:41)
[2022-06-16] MEDS ORDERED: IPRATROPIUM BROM 0.5MG/2.5ML ONE (10:42)
[2022-06-16] MEDS: METHYLPREDNISOLONE 40 MG INJ IV SCH (17:24)
[2022-06-16] MEDS ORDERED: ACETAMINOPHEN 500 MG TAB PO PRN (17:43)
--- NOTE | 2022-06-16 18:06 | P.HP ---
Certification for Inpatient Patient admitted to: Inpatient With expected LOS: >2 Midnights Practitioner: I am a practitioner with admitting privileges, knowledge of patient current condition, hospital course, and medical plan of care. Services: Services provided to patient in accordance with Admission requirements found in Title 42 Section 412.3 of the Code of Federal Regulations Patient History Date of Service: 06/16/22 Reason for admission: Acute COPD Exacerbation History of Present Illness: Mr. Echo Singh is a pleasant 86 year old male who has a past medical history of chronic obstructive pulmonary disease, hypertension, tobacco use disorder, and history of cerebrovascular accident who presents to the [facility] Emergency Department for acute shortness of breath. He reports that, over the last 2-3 days, he has been experiencing intermittent episodes of shortness of breath. He denies any obvious inciting or alleviating factors. He attempted to manage his symptoms at home with his inhalers, but his symptoms persisted. He grades his symptoms a 10/10 in severity. His shortness of breath has been associated with wheezing and a dry cough. On review of systems, he denies any fevers, chills, headaches, dizziness, syncope, weakness, chest pain, palpitations, abdominal pain, nausea/vomiting, diarrhea, constipation, hematochezia, melena, dysuria, hematuria, myalgia, or any other symptoms. He presented to the Emergency Department for further evaluation. Upon presentation, his vital signs were stable. His laboratory studies were also fairly stable. Blood cultures x 2 were obtained. EKG reportedly revealed sinus tachycardia without STEMI criteria. Chest x-ray revealed, "prominent COPD." Right lower extremity Doppler revealed, "no evidence of right lower extremity deep venous thrombosis." In the Emergency Department, he was given levalbuterol and magnesium. Per ED physician, he received a dose of methylprednisolone by EMS prior to arrival. He was admitted to the General Internal Medicine service for further evaluation. Allergies No Known Allergies Allergy (Verified 11/04/20 10:36) Home medications list reviewed: No (He does not know his home meds) Home Medications: Amlodipine [Norvasc*] 1 tab PO DAILY 09/28/20 Aspirin [Adult Aspirin Regimen] 1 tab PO DAILY 09/28/20 Losartan Potassium 1 tab PO DAILY 09/28/20 Arformoterol Tartrate [Brovana] 15 mcg NEB BIDRESP #60 vial.neb 06/01/22 Cefdinir [Omnicef] 300 mg PO BID #14 capsule 04/13/22 predniSONE [Deltasone] 20 mg PO BID #11 tab 04/13/22 - Past Medical/Surgical History Has patient received pneumonia vaccine in the past: Yes Diabetic: No -: CVA -: Hypertension -: COPD -: Tobacco abuse Past Surgical History: Reviewed- Non-Contributory Psychosocial/ Personal History: Patient lives at home with his family - Family History Family History: Reviewed- Non-Contributory - Social History Smoking Status: Current every day smoker Alcohol use: No CD- Drugs: No Caffeine use: Yes Review of Systems General: Unremarkable Eyes: Unremarkable ENT: Unremarkable Respiratory: Cough, Dry, Shortness of Breath, Wheezing Cardiovascular: Unremarkable Gastrointestinal: Unremarkable Genitourinary: Unremarkable Musculoskeletal: Unremarkable Neurological: Unremarkable Lymphatics: Unremarkable Physical Examination - Vital Signs Temperature: 98.1 F Blood Pressure: 109/56 Pulse: 92 Respirations: 22 Pulse Ox (%): 96 - Physical Exam General: Alert, In no apparent distress, Oriented x3, Mild distress HEENT: Atraumatic, PERRLA, Mucous membr. moist/pink, EOMI, Sclerae nonicteric Neck: Supple, JVD not distended Respiratory: Diminished, Expiratory wheezes, Inspiratory wheezes, Rhonchi/gurgles Cardiovascular: No edema, Regular rate/rhythm, Normal S1 S2, No gallops, No rubs, No murmurs Gastrointestinal: Normal bowel sounds, Soft and benign, Non-distended, No tenderness, No rebound, No guarding Musculoskeletal: No clubbing Integumentary: No rashes Neurological: Normal speech, Normal affect, Other (hard of hearing) - Studies Laboratory Data (last 24 hrs) 06/16/22 06:30: PT 11.0, INR 1.00, APTT 34.5 06/16/22 06:30: WBC 7.2, Hgb 11.7 L, Hct 34.8 L, Plt Count 301 06/16/22 06:30: Sodium 139, Potassium 4.2, BUN 19 H, Creatinine 0.83, Glucose 118 H, Magnesium 2.3 Assessment and Plan - Plan # Acute Chronic Obstructive Pulmonary Disease Exacerbation # SIRS Criteria (Tachypnea, Tachycardia) likely due to COPD Exacerbation - Evaluation thus far: - Physical exam = wheezing throughout - Chest x-ray = "prominent COPD" - Plan: - Pulmonary Medicine - consulted recommendations appreciated - DuoNebs q4-6hr - S/P Methylprednisolone by EMS - Plan for 5-7 day course of steroids: - Will utilize methylprednisolone 40 mg IV q8hr while hospitalized - Can transition to Prednisone when discharged to complete course - S/P Magnesium Sulfate IV x 1 - Consulted Respiratory Therapy - Supplemental oxygen to maintain SpO2 > 92% - Assess inhaler technique one improved from COPD exacerbation - Incentive spirometry # Tobacco Use Disorder - Tobacco cessation counseling provided # History of Cerebrovascular Accident # Hypertension - Resume home medications once able to verify # Generalized Weakness with Deconditioning - Consulted PT Kadeem Canales M.D. Discharge Plan: Home Plan to discharge in: Greater than 2 days - Advance Directives Does patient have a Living Will: No Does patient have a Durable POA for Healthcare: No
[2022-06-16] MEDS ORDERED: ALBUTEROL 2.5 MG/3 ML NEB SOL NEB SCH (20:00)
[2022-06-16] MEDS: HEPARIN 5000 UNIT/ML 1 ML VIAL SQ SCH (20:39)
[2022-06-16] MEDS: LEVALBUTEROL 0.63 MG/3 ML NEB NEB SCH (22:00)
[2022-06-16] MEDS: IPRATROPIUM BROM 0.5MG/2.5ML NEB SCH (22:00)
[2022-06-16] MEDS: BENZONATATE 100 MG CAP PO PRN (22:41)
[2022-06-17] MEDS: METHYLPREDNISOLONE 40 MG INJ IV SCH ×3 (00:22→17:03)
[2022-06-17] MEDS: IPRATROPIUM BROM 0.5MG/2.5ML NEB SCH ×4 (02:00→19:35)
[2022-06-17] MEDS: LEVALBUTEROL 0.63 MG/3 ML NEB NEB SCH ×4 (02:00→19:35)
[2022-06-17 04:51] LABS: Absolute Lymphocytes (CBC) 0.5 K/uL (0.7-4.9); Hematocrit 30.8 % (39.6-49.0); Lymphocytes % 5.8 % (15.3-44.8); MPV 8.8 fL (7.6-11.3); RBC Red Blood Cell Count 3.24 M/uL (4.33-5.43)
[2022-06-17 05:11] LABS: Bilirubin Total 0.6 mg/dL (0.2-1.0); Magnesium 2.5 mg/dL (1.8-2.4); Phosphorus 2.5 mg/dL (2.5-4.9); Potassium 4.5 mmol/L (3.5-5.1)
[2022-06-17] MEDS: HEPARIN 5000 UNIT/ML 1 ML VIAL SQ SCH ×2 (08:19→22:02)
[2022-06-17] MEDS: AZITHROMYCIN IV 500 MG in NA CHLORIDE 0.9% 250 ML IVPB SCH (09:25)
--- NOTE | 2022-06-17 10:41 | P.CNS ---
Date of Consult: 06/17/22 Reason for Consult: COPD exacerbation Chief Complaint: Acute COPD Exacerbation History of Present Illness: Patient is 86 years of age with a history of COPD active smoker history of stroke admitted with worsening dyspnea over the past week uses nebulizers at h ome [place] any phlegm chest pain currently stable on oxygen Allergies No Known Allergies Allergy (Verified 11/04/20 10:36) Home Medications: Amlodipine [Norvasc*] 1 tab PO DAILY 09/28/20 Aspirin [Adult Aspirin Regimen] 1 tab PO DAILY 09/28/20 Losartan Potassium 1 tab PO DAILY 09/28/20 Arformoterol Tartrate [Brovana] 15 mcg NEB BIDRESP #60 vial.neb 04/13/22 Cefdinir [Omnicef] 300 mg PO BID #14 capsule 04/13/22 predniSONE [Deltasone] 20 mg PO BID #11 tab 04/13/22 - Past Medical/Surgical History Diabetic: No -: CVA -: Hypertension -: COPD -: Tobacco abuse Psychosocial/ Personal History: Patient lives at home with his family - Social History Smoking Status: Current some day smoker Alcohol use: No CD- Drugs: No Caffeine use: Yes Review of Systems 10-point ROS is otherwise unremarkable General: Weakness Respiratory: Cough, Shortness of Breath Physical Examination Temp Pulse Resp BP Pulse Ox 97.0 F 77 18 105/53 L 93 06/17/22 08:00 06/17/22 08:00 06/17/22 08:00 06/17/22 08:00 06/17/22 08:00 General: Alert, In no apparent distress, Oriented x3 Respiratory: Expiratory wheezes, Inspiratory wheezes Cardiovascular: No edema, Regular rate/rhythm, Normal S1 S2 Gastrointestinal: Normal bowel sounds, Soft and benign - Problems (1) COPD exacerbation Current Visit: No Status: Acute Plan: Patient is 86 years of age heavy smoker admitted with COPD exacerbation chest x- ray hyperinflated consistent with severe COPD patient is currently stable oxygenation satisfactory valuate for home O2 discharge on prednisone 10 mg twice a day continue with Noel /patient is a [place] patient unlikely to qualify for Symbicort and Spiriva Trelegy is not covered plan to follow-up in my clinic meanwhile discharge on prednisone scheduled for 2 weeks 10 mg twice a day continue with Noel
[2022-06-17] MEDS: ARFORMOTEROL TARTRATE 15 MCG/2 ML VIAL.NEB NEB SCH ×2 (13:45→19:35)
--- NOTE | 2022-06-17 13:47 | P.PN ---
Subjective Date of Service: 06/17/22 Chief Complaint: Acute COPD Exacerbation Subjective: No new changes He continues to report significant shortness of breath, wheezing, and a dry cough. Denies taking any inhalers at home outside of albuterol, which he has had to use around the clock. His son and two daughters (Lucía and Tresa) were present for today's visit. Review of Systems 10-point ROS is otherwise unremarkable Respiratory: Cough, Dry, Shortness of Breath, SOB with Excertion, Wheezing Physical Examination - Vital Signs Temperature: 97.7 F Blood Pressure: 92/48 Pulse: 84 Respirations: 18 Pulse Ox (%): 99 - Studies Microbiology Data (last 24 hrs): 06/16/22 06:44 Blood - Blood Anaerobic Blood Culture - Final Assessment And Plan - Plan - Physical Exam General: Alert, Oriented x3, Mild distress HEENT: Atraumatic, PERRLA, Mucous membr. moist/pink, EOMI, Sclerae nonicteric Neck: Supple, JVD not distended Respiratory: Diminished, Expiratory wheezes, Inspiratory wheezes, Rhonchi/gurgles Cardiovascular: No edema, Regular rate/rhythm, Normal S1 S2, No gallops, No rubs, No murmurs Gastrointestinal: Normal bowel sounds, Soft and benign, Non-distended, No tenderness, No rebound, No guarding Musculoskeletal: No clubbing Integumentary: No rashes Neurological: Normal speech, Normal affect, Other (hard of hearing) # Acute Chronic Obstructive Pulmonary Disease Exacerbation # SIRS Criteria (Tachypnea, Tachycardia) likely due to COPD Exacerbation - Evaluation thus far: - Physical exam = wheezing throughout - Chest x-ray = "prominent COPD" - Plan: - Pulmonary Medicine consulted - recommendations appreciated - Recommended starting alformeterol - Levalbuterol + ipratropium q6hr - S/P Methylprednisolone by EMS - Plan for 5-7 day course of steroids: - Will utilize methylprednisolone 40 mg IV q8hr while hospitalized - Can transition to prednisone when discharged to complete course - S/P Magnesium Sulfate IV x 1 - Consulted Respiratory Therapy - Supplemental oxygen to maintain SpO2 > 92% - If unable to wean over next 1-2 days, will evaluate for home oxygen - Continue azithromycin for anti-inflammatory effect - Assess inhaler technique one improved from COPD exacerbation - Incentive spirometry # Tobacco Use Disorder - Tobacco cessation counseling provided # History of Cerebrovascular Accident # Hypertension - Resume home medications once able to verify # Generalized Weakness with Deconditioning - Consulted PT Kadeem Canales M.D. Discharge Plan: Home Plan to discharge in: 48 Hours
[2022-06-17 15:18] VITALS: BMI 19.3
[2022-06-17] MEDS ORDERED: AZITHROMYCIN IV 500 MG in NA CHLORIDE 0.9% 250 ML IVPB SCH (19:00)
[2022-06-18] MEDS: METHYLPREDNISOLONE 40 MG INJ IV SCH ×3 (01:23→16:00)
[2022-06-18] MEDS: IPRATROPIUM BROM 0.5MG/2.5ML NEB SCH ×4 (01:50→20:00)
[2022-06-18] MEDS: LEVALBUTEROL 0.63 MG/3 ML NEB NEB SCH ×4 (01:50→20:00)
[2022-06-18 05:24] LABS: Absolute Lymphocytes (CBC) 0.4 K/uL (0.7-4.9); Hematocrit 29.2 % (39.6-49.0); MCV 94.1 fL (80-100); MPV 8.8 fL (7.6-11.3)
[2022-06-18 05:35] LABS: Albumin 2.7 g/dL (3.4-5.0); Bilirubin Total 0.5 mg/dL (0.2-1.0); Potassium 4.5 mmol/L (3.5-5.1); Protein, Total 5.6 g/dL (6.4-8.2)
[2022-06-18] MEDS: ARFORMOTEROL TARTRATE 15 MCG/2 ML VIAL.NEB NEB SCH ×2 (08:28→20:30)
[2022-06-18] MEDS: AZITHROMYCIN IV 500 MG in NA CHLORIDE 0.9% 250 ML IVPB SCH (08:57)
[2022-06-18] MEDS: HEPARIN 5000 UNIT/ML 1 ML VIAL SQ SCH ×2 (08:57→21:30)
--- NOTE | 2022-06-18 11:37 | P.PN ---
Subjective Date of Service: 06/18/22 Chief Complaint: Acute COPD Exacerbation Subjective: Improving No acute events overnight. He reports persistent shortness of breath, but mentions that it has been improving. He appears more comfortable this morning. Review of Systems 10-point ROS is otherwise unremarkable Respiratory: Cough, Dry, Shortness of Breath, SOB with Excertion Physical Examination - Vital Signs Temperature: 97.7 F Blood Pressure: 91/47 Pulse: 86 Respirations: 20 Pulse Ox (%): 96 - Studies Microbiology Data (last 24 hrs): 06/16/22 06:44 Blood - Blood Anaerobic Blood Culture - Final Assessment And Plan - Plan - Physical Exam General: Alert, Oriented x3, Mild distress HEENT: Atraumatic, PERRLA, Mucous membr. moist/pink, EOMI, Sclerae nonicteric Neck: Supple, JVD not distended Respiratory: Diminished, Minimal expiratory wheezes Cardiovascular: No edema, Regular rate/rhythm, Normal S1 S2, No gallops, No rubs, No murmurs Gastrointestinal: Normal bowel sounds, Soft and benign, Non-distended, No tenderness, No rebound, No guarding Musculoskeletal: No clubbing Integumentary: No rashes Neurological: Normal speech, Normal affect, Other (hard of hearing) # Acute Chronic Obstructive Pulmonary Disease Exacerbation # SIRS Criteria (Tachypnea, Tachycardia) likely due to COPD Exacerbation - Evaluation thus far: - Physical exam = wheezing throughout, improving - Chest x-ray = "prominent COPD" - Plan: - Pulmonary Medicine consulted - recommendations appreciated - Recommended starting alformeterol - [facility], plan is to prescribe Symbicort +/- Spiriva at discharge - Levalbuterol + ipratropium q6hr - S/P Methylprednisolone by EMS - Plan for 5-7 day course of steroids: - Will utilize methylprednisolone 40 mg IV q8hr while hospitalized - Can transition to prednisone when discharged to complete course - S/P Magnesium Sulfate IV x 1 - Consulted Respiratory Therapy - Supplemental oxygen to maintain SpO2 > 92% - Plan for home oxygen evaluation - Continue azithromycin for anti-inflammatory effect - Assess inhaler technique one improved from COPD exacerbation - Incentive spirometry # Tobacco Use Disorder - Tobacco cessation counseling provided # History of Cerebrovascular Accident # Hypertension - Resume home medications once able to verify # Generalized Weakness with Deconditioning - Consulted PT Kadeem Canales M.D. Discharge Plan: Home Plan to discharge in: 48 Hours
[2022-06-18] MEDS: BENZONATATE 100 MG CAP PO PRN (22:20)
[2022-06-19] MEDS: METHYLPREDNISOLONE 40 MG INJ IV SCH ×3 (00:45→16:09)
[2022-06-19] MEDS: LEVALBUTEROL 0.63 MG/3 ML NEB NEB SCH ×4 (02:00→20:05)
[2022-06-19] MEDS: IPRATROPIUM BROM 0.5MG/2.5ML NEB SCH ×4 (02:00→20:05)
[2022-06-19] MEDS: ARFORMOTEROL TARTRATE 15 MCG/2 ML VIAL.NEB NEB SCH ×2 (08:00→20:05)
[2022-06-19 08:08] LABS: Absolute Lymphocytes (CBC) 0.3 K/uL (0.7-4.9); Hematocrit 32.5 % (39.6-49.0); Lymphocytes % 2.5 % (15.3-44.8); MCV 94.8 fL (80-100); MPV 8.8 fL (7.6-11.3); RBC Red Blood Cell Count 3.43 M/uL (4.33-5.43)
[2022-06-19 08:18] LABS: Albumin 2.8 g/dL (3.4-5.0); Bilirubin Total 0.5 mg/dL (0.2-1.0); Potassium 4.3 mmol/L (3.5-5.1); Protein, Total 5.8 g/dL (6.4-8.2)
[2022-06-19] MEDS: AZITHROMYCIN IV 500 MG in NA CHLORIDE 0.9% 250 ML IVPB SCH (08:48)
[2022-06-19] MEDS: HEPARIN 5000 UNIT/ML 1 ML VIAL SQ SCH ×2 (08:48→21:02)
--- NOTE | 2022-06-19 10:34 | P.PN ---
Subjective Date of Service: 06/19/22 Chief Complaint: Acute COPD Exacerbation No acute events overnight. Per RN, he refused breathing treatment overnight. This morning, he reports that his shortness of breath is worsening. His respiratory rate appears to be within normal limits, but he is audibly wheezing from a distance. Review of Systems 10-point ROS is otherwise unremarkable Respiratory: Cough, Dry, Shortness of Breath, SOB with Excertion, Wheezing Physical Examination - Vital Signs Temperature: 97.9 F Blood Pressure: 106/53 Pulse: 103 Respirations: 16 Pulse Ox (%): 98 Assessment And Plan - Plan - Physical Exam General: Alert, Oriented x3, Mild distress HEENT: Atraumatic, PERRLA, Mucous membr. moist/pink, EOMI, Sclerae nonicteric Neck: Supple, JVD not distended Respiratory: Diminished, Loud inspiratory and expiratory wheezes Cardiovascular: No edema, Regular rate/rhythm, Normal S1 S2, No gallops, No rubs, No murmurs Gastrointestinal: Normal bowel sounds, Soft and benign, Non-distended, No tenderness, No rebound, No guarding Musculoskeletal: No clubbing Integumentary: No rashes Neurological: Normal speech, Normal affect, Other (hard of hearing) # Acute Chronic Obstructive Pulmonary Disease Exacerbation # SIRS Criteria (Tachypnea, Tachycardia) likely due to COPD Exacerbation - Evaluation thus far: - Physical exam = wheezing throughout - Chest x-ray = "prominent COPD" - Plan: - Pulmonary Medicine consulted - recommendations appreciated - Recommended starting alformeterol - [facility], plan is to prescribe Symbicort +/- Spiriva at discharge - Levalbuterol + ipratropium q6hr - S/P Methylprednisolone by EMS - Plan for 5-7 day course of steroids: - Will utilize methylprednisolone 40 mg IV q8hr while hospitalized - Can transition to prednisone when discharged to complete course - S/P Magnesium Sulfate IV x 1 - Consulted Respiratory Therapy - Supplemental oxygen to maintain SpO2 > 92% - Plan for home oxygen evaluation - Continue azithromycin for anti-inflammatory effect - Assess inhaler technique one improved from COPD exacerbation - Incentive spirometry - Will continue current plan of care - spoke with daughter, Ms. Graham, today who is in agreement with this plan # Tobacco Use Disorder - Tobacco cessation counseling provided # History of Cerebrovascular Accident # Hypertension - Resume home medications once able to verify # Generalized Weakness with Deconditioning - Consulted PT - Recommends Home Health - Doctor Of Veterinary Medicine consulted Kadeem Canales M.D. Discharge Plan: Home Plan to discharge in: 48 Hours
[2022-06-19] MEDS: BENZONATATE 100 MG CAP PO PRN (21:02)
[2022-06-20] MEDS: METHYLPREDNISOLONE 40 MG INJ IV SCH ×3 (00:08→18:36)
[2022-06-20] MEDS: LEVALBUTEROL 0.63 MG/3 ML NEB NEB SCH ×4 (01:10→20:00)
[2022-06-20] MEDS: IPRATROPIUM BROM 0.5MG/2.5ML NEB SCH ×4 (01:10→20:00)
[2022-06-20 04:06] LABS: Absolute Lymphocytes (CBC) 0.3 K/uL (0.7-4.9); Hematocrit 33.2 % (39.6-49.0); Lymphocytes % 2.9 % (15.3-44.8); MCV 93.3 fL (80-100); MPV 9.4 fL (7.6-11.3); RBC Red Blood Cell Count 3.56 M/uL (4.33-5.43)
[2022-06-20 04:19] LABS: Albumin 2.9 g/dL (3.4-5.0); Bilirubin Total 0.5 mg/dL (0.2-1.0); Protein, Total 5.9 g/dL (6.4-8.2)
[2022-06-20 05:32] LABS: Blood Morphology Comment NOT SEEN (NOT SEEN); Platelet Estimate ADEQ
[2022-06-20 05:52] LABS: Magnesium 2.5 mg/dL (1.8-2.4)
[2022-06-20] MEDS: AZITHROMYCIN IV 500 MG in NA CHLORIDE 0.9% 250 ML IVPB SCH (08:09)
[2022-06-20] MEDS: HEPARIN 5000 UNIT/ML 1 ML VIAL SQ SCH ×2 (08:09→20:35)
[2022-06-20] MEDS: ARFORMOTEROL TARTRATE 15 MCG/2 ML VIAL.NEB NEB SCH ×2 (08:21→20:00)
[2022-06-20] MEDS: BENZONATATE 100 MG CAP PO PRN (20:35)
[2022-06-21] MEDS: METHYLPREDNISOLONE 40 MG INJ IV SCH ×2 (00:16→08:05)
[2022-06-21] MEDS: LEVALBUTEROL 0.63 MG/3 ML NEB NEB SCH ×3 (01:58→13:20)
[2022-06-21] MEDS: IPRATROPIUM BROM 0.5MG/2.5ML NEB SCH ×3 (01:58→13:19)
[2022-06-21] MEDS: ARFORMOTEROL TARTRATE 15 MCG/2 ML VIAL.NEB NEB SCH (08:00)
[2022-06-21] MEDS: HEPARIN 5000 UNIT/ML 1 ML VIAL SQ SCH (08:05)
[2022-06-21] MEDS: AZITHROMYCIN IV 500 MG in NA CHLORIDE 0.9% 250 ML IVPB SCH (08:05)
[2022-06-21 09:46] VITALS: O2SAT 100
[2022-06-21 12:20] VITALS: BP 113/56; TEMP 98.9
== END 2022-06-21 14:23 | disposition home health service (06) | DRG 191 ==
LOC: ER 06:17 → ERHOLD 10:05 → 2ND 15:57
PROVIDERS: ADMIT Internal Medicine; ATTEND Internal Medicine
DX: J44.1 Chronic obstructive pulmonary disease with (acute) exacerbation (principal); I69.351 Hemiplegia and hemiparesis following cerebral infarction affecting right dominant side; R65.10 Systemic inflammatory response syndrome (SIRS) of non-infectious origin without acute organ dysfunction; I10 Essential (primary) hypertension; R53.1 Weakness; F17.210 Nicotine dependence, cigarettes, uncomplicated; Z79.82 Long term (current) use of aspirin; Z20.822 Contact with and (suspected) exposure to COVID-19
CPT/HCPCS: 36415; 71045; 80048; 80053; 83735; 83880; 84100; 85025; 85379; 85610; 85730; 87040; 93005; 93971; 94010; 94640; 96365; 96366; 97116; 97161; 99285; J0456; J1644; J2920; J3475; J7050; J7605; U0003

== ENCOUNTER 2022-06-28 12:17 | Emergency (ER) | payer OTHER ==
[2022-06-28] MEDS ORDERED: IPRATROPIUM BROM 0.5MG/2.5ML ONE (13:03)
[2022-06-28] MEDS ORDERED: ALBUTEROL 2.5 MG/3 ML NEB SOL ONE (13:03)
[2022-06-28 13:48] LABS: Absolute Lymphocytes (CBC) 1.5 K/uL (0.7-4.9); Hematocrit 36.7 % (39.6-49.0); Lymphocytes % 9.3 % (15.3-44.8); MCV 94.7 fL (80-100); MPV 9.1 fL (7.6-11.3); RBC Red Blood Cell Count 3.88 M/uL (4.33-5.43)
[2022-06-28 14:00] LABS: Potassium 4.2 mmol/L (3.5-5.1); Troponin High Sensitivity 7.9 pg/mL (<58.9)
--- NOTE | 2022-06-28 14:39 | RAD REPORT ---
EXAM DESCRIPTION: CT - Abdomen Pelvis W Contrast - 06/28/2022 2:22 pm CLINICAL HISTORY: Abdominal pain COMPARISON: none. TECHNIQUE: Computed axial tomography of the abdomen pelvis was obtained. 100 cc Isovue-300 was admin istered intravenously. Oral contrast was not requested which limits evaluation of bowel and appendix All CT scans are performed using dose optimization technique as appropriate and may include automated exposure control or mA/KV adjustment according to patient size. FINDINGS: Borderline gallbladder wall thickening. Atherosclerotic disease. The liver, spleen, pancreas, adrenal and kidneys appear unremarkable. There is no evidence of diverticulitis. Bladder diverticulum. Postsurgical changes left inguinal ian ia repair Moderate amount of stool throughout the colon IMPRESSION: Borderline gallbladder wall thickening. Ultrasound may be helpful.
--- NOTE | 2022-06-28 15:36 | RAD REPORT ---
EXAM DESCRIPTION: US - Abdomen Exam Limited - 06/28/2022 3:19 pm CLINICAL HISTORY: Abdominal pain. COMPARISON: CT abdomen June 28, 2022 FINDINGS: Mild gallbladder wall thickening. A gallstone is not seen. The biliary tree is normal caliber. IMPRESSION: Mild gallbladder wall thickening. This may be secondary to hypoalbuminemia or acalculous cholecystitis
[2022-06-28 15:58] LABS: Blood Morphology Comment NOT SEEN (NOT SEEN); Platelet Estimate ADEQ; White Blood Cell Scan OK (OK)
[2022-06-28 16:16] LABS: Albumin 2.8 g/dL (3.4-5.0); Bilirubin Direct 0.2 mg/dL (0-0.2); Bilirubin Total 0.8 mg/dL (0.2-1.0); Protein, Total 5.8 g/dL (6.4-8.2)
--- NOTE | 2022-06-28 16:16 | RAD REPORT ---
EXAM DESCRIPTION: Shaniqua Single View06/28/2022 1:27 pm CLINICAL HISTORY: Shortness of breath COMPARISON: June 16, 2022 FINDINGS: Lungs are moderately to markedly hyperaerated. The lungs appear clear of acute infiltrate. The heart is normal size IMPRESSION: COPD without visualization of an acute abnormality
--- NOTE | 2022-06-28 16:57 | ER ---
Nurse's Notes [facility] Name: Saad Singh Age: 86 yrs Sex: Male : 1935 Arrival Date: 06/28/2022 Time: 12:20 Bed 26 Private MD: Diagnosis: Lower abdominal pain, unspecified Presentation: 06/28 12:26 Chief complaint: Abdominal pain x 2-3 days. Denies N/V/D. Recently inpatient for COPD iw exacerbation, granddaughter report breathing is at baseline, on 2LNC home O2. Coronavirus screen: At this time, the client does not indicate any symptoms associated with coronavirus-19. Ebola Screen: No symptoms or risks identified at this time. Initial Sepsis Screen: Does the patient meet any 2 criteria? No. Patient's initial sepsis screen is negative. Does the patient have a suspected source of infection? No. Patient's initial sepsis screen is negative. Risk Assessment: Do you want to hurt yourself or someone else? Patient reports no desire to harm self or others. Onset of symptoms was June 26, 2022. 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 - Social history:: Smoking status: unknown. Screenin:45 Abuse screen: Denies threats or abuse. Denies injuries from another. Nutritional jl7 screening: No deficits noted. Tuberculosis screening: No symptoms or risk factors identified. Fall Risk No fall in past 12 months (0 pts). Secondary diagnosis (15 points) Alzheimer's, IV access (20 points). Mental Status- Overestimates/Forgets Limitations (15 pts.). Total Callaway Fall Scale indicates High Risk Score (45 or more points). Fall prevention measures have been instituted. Side Rails Up X 2 Placed Close to Nursing Station Frequent Obs/Assessments Occuring Family Present and informed to notify staff if the need to leave the bedside As available patient and family educated on Fall Prevention Program and Strategies. Assessment: 13:45 General: Appears in no apparent distress. uncomfortable, slender, Behavior is jl7 cooperative, anxious, uncooperative. Pain: Complains of pain in left upper quadrant and left lower quadrant Pain currently is 5 out of 10 on a pain scale. Quality of pain is described as "It's hard to describe.". Neuro: Level of Consciousness is awake, alert, obeys commands, Oriented to person, place. Cardiovascular: Patient's skin is warm and dry. Respiratory: Airway is patent Respiratory effort is even, labored, Respiratory pattern is regular, symmetrical, Breath sounds are coarse Breath sounds with wheezes. GI: Abdomen is round distended, Stools are reported to be constipated. Bowel sounds present X 4 quads. Abd is soft Abdomen is tender to palpation Reports constipation, Patient currently denies diarrhea, nausea, vomiting. 15:00 Reassessment: Patient appears in no apparent distress at this time. No changes from jl7 previously documented assessment. Patient and/or family updated on plan of care and expected duration. Pain level reassessed. 16:00 Reassessment: Patient appears in no apparent distress at this time. No changes from jl7 previously documented assessment. Patient and/or family updated on plan of care and expected duration. Pain level reassessed. 16:30 Reassessment: ERP at bedside discussing results and POC. jl7 Vital Signs: 12:26 BP 130 / 107; Pulse 90; Resp 20; Temp 97.2; Pulse Ox 96% on 2 lpm NC; Pain 5/10; iw 13:49 BP 119 / 57; Pulse 74; Resp 19; Pulse Ox 99% on Non-rebreather mask; jl7 15:00 BP 123 / 65; Pulse 85; Resp 21; Pulse Ox 97% on 2 lpm NC; jl7 16:30 BP 106 / 55; Pulse 73; Resp 20; Pulse Ox 100% on R/A; jl7 ED Course: 12:20 Patient arrived in ED. mr 12:20 Anna Painting FNP-C is PHCP. kb 12:20 Teto Sterling DO is Attending Physician. kb 12:28 Triage completed. iw 12:29 [employer], DARSHAN is Primary Nurse. jl7 12:30 Patient has correct armband on for positive identification. Placed in gown. Bed in low jl7 position. Call light in reach. Side rails up X 1. Client placed on continuous cardiac and pulse oximetry monitoring. NIBP monitoring applied. Warm blanket given. 12:30 EKG done, by ED staff, reviewed by Teto Sterling DO. jl7 13:00 Arm band placed on right wrist. jl7 13:29 XRAY Chest (1 view) In Process Unspecified. EDMS 13:44 Initial lab(s) drawn, by me, sent to lab. Inserted saline lock: 22 gauge in left jl7 forearm, using aseptic technique. Blood collected. 14:24 CT Abd/Pelvis - IV Contrast Only In Process Unspecified. EDMS 15:21 US Abdomen Limited In Process Unspecified. EDMS 15:40 PHCP role handed off by Anna Painting FNP-C iw 15:40 Fernando Anderson PA is PHCP. iw 16:55 Truman Carpenter MD is Referral Physician. cp 17:33 No provider procedures requiring assistance completed. IV discontinued, intact, jl7 bleeding controlled, No redness/swelling at site. Pressure dressing applied. Administered Medications: 13:30 Drug: Albuterol 1.25 mg Route: Inhalation; jl7 14:00 Follow up: Response: No adverse reaction; No change in condition jl7 13:30 Drug: AtroVENT (ipratropium) Aerosol 0.5 mg Route: Inhalation; jl7 14:00 Follow up: Response: No adverse reaction; No change in condition jl7 17:19 Drug: Augmentin (Amoxicillin-Clavulanate) 875 mg Route: PO; jl7 17:33 Follow up: Response: No adverse reaction jl7 Medication: 13:45 VIS not applicable for this client. jl7 Outcome: 16:55 Discharge ordered by MD. cp 17:33 Discharged to home ambulatory. jl7 17:33 Condition: stable 17:33 Discharge instructions given to patient, family, Instructed on discharge instructions, follow up and referral plans. medication usage, Demonstrated understanding of instructions, follow-up care, medications, Prescriptions given X 1. 17:34 Patient left the ED. jl7 Signatures: Dispatcher [employer] EDMS Anna Paitning FNP-C FNP-Jenny Mendezchepe Nan Jessica Weathers, RN RN iw Fernando Anderson PA PA cp Leal, Jahala, RN RN jl7
--- NOTE | 2022-06-28 16:57 | EDPHYS ---
Physician Documentation [facility] Name: Saad Singh Age: 86 yrs Sex: Male : 1935 Arrival Date: 06/28/2022 Time: 12:20 Bed 26 Private MD: ED Physician Teto Sterling HPI: 06/28 15:12 This 86 yrs old Male presents to ER via Wheelchair with complaints of abd pain. kb 15:12 The patient presents with abdominal pain that is diffuse. Onset: The symptoms/episode kb began/occurred today. The symptoms do not radiate. Associated signs and symptoms: none. The symptoms are described as constant. Modifying factors: The symptoms are alleviated by nothing, the symptoms are aggravated by nothing. Severity of pain: At its worst the pain was moderate in the emergency department the pain is unchanged. The patient has not experienced similar symptoms in the past. The patient has been recently seen by a physician:. Pt reports abd pain that started today. Went to the clinic and was sent here for a CT scan. States he was recently admitted for COPD, sent home on oxygen and steroids. Reports chronic edema in lower extremities. . 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 - Social history:: Smoking status: unknown. ROS: 15:08 Constitutional: Negative for fever, chills, and weight loss. kb 15:08 Abdomen/GI: Positive for abdominal pain, Negative for nausea, vomiting, and diarrhea. 15:08 All other systems are negative. Exam: 12:53 ECG was reviewed by the Attending Physician. kb 15:08 Constitutional: This is a well developed, well nourished patient who is awake, alert, kb and in no acute distress. Head/Face: Normocephalic, atraumatic. ENT: Moist Mucous membranes Cardiovascular: Regular rate and rhythm with a normal S1 and S2. No gallops, murmurs, or rubs. No pulse deficits. Skin: Warm, dry with normal turgor. Normal color. MS/ Extremity: Pulses equal, no cyanosis. Neurovascular intact. Full, normal range of motion. Neuro: Awake and alert, GCS 15, oriented to person, place, time, and situation. Moves all extremities. Normal gait. Psych: Awake, alert, with orientation to person, place and time. Behavior, mood, and affect are within normal limits. 15:08 Cardiovascular: Edema: bilateral lower extremity edema with RLE > LLE in circumference. This was documented on previous visit as well and US was normal. 15:08 Respiratory: mild respiratory distress is noted, Respirations: labored breathing, that is mild, Breath sounds: wheezing: expiratory that is mild, is heard diffusely. 15:08 Abdomen/GI: Inspection: distension, that is mild, Bowel sounds: normal, Palpation: soft, in all quadrants, moderate abdominal tenderness, in all quadrants. Vital Signs: 12:26 BP 130 / 107; Pulse 90; Resp 20; Temp 97.2; Pulse Ox 96% on 2 lpm NC; Pain 5/10; iw 13:49 BP 119 / 57; Pulse 74; Resp 19; Pulse Ox 99% on Non-rebreather mask; jl7 15:00 BP 123 / 65; Pulse 85; Resp 21; Pulse Ox 97% on 2 lpm NC; jl7 16:30 BP 106 / 55; Pulse 73; Resp 20; Pulse Ox 100% on R/A; jl7 MDM: 12:26 Patient medically screened. kb 15:10 Data reviewed: vital signs, nurses notes. Data interpreted: Pulse oximetry: on home o2 kb is 99 %. Interpretation: normal. 15:35 Transition of care: After a detail discussion of the patient's case, care is kb transferred to Fernando BERGMAN. 16:45 Physician consultation: Truman Carpenter MD was called at 16:45, was contacted at 16:45, raymundo regarding consult, patient's condition, and will see patient in office, this week for reevaluation. would like medications started, oral Augmentin. 16:45 Response to treatment: the patient's symptoms have markedly improved after treatment, raymundo and as a result, I will discharge patient. ED course: VSS. Patient reports abdominal pain markedly improved. 06/28 12:31 Order name: Basic Metabolic Panel; Complete Time: 14:20 kb 06/28 16:18 Interpretation: Normal except: CO2 33; CA 8.4. cp 06/28 12:31 Order name: CBC with Diff; Complete Time: 16:17 kb 06/28 16:17 Interpretation: Normal except: WBC 15.90; RBC 3.88; HGB 12.1; HCT 36.7; VALENTE% 81.1; LYM% cp 9.3; NEUT A 12.9. 08 12:31 Order name: NT PRO-BNP; Complete Time: 14:20 kb 06/28 12:31 Order name: Troponin HS; Complete Time: 14:20 kb 06/28 15:34 Order name: Lipase; Complete Time: 16:17 kb 06/28 15:34 Order name: LFT's; Complete Time: 16:17 kb 16 16:18 Interpretation: Normal except: ALB 2.8; TP 5.8; A/G 0.9. 06/28 12:31 Order name: XRAY Chest (1 view); Complete Time: 16:18 kb 06/28 16:18 Interpretation: Report review. 06/28 12:31 Order name: EKG; Complete Time: 12:35 kb 06/28 12:31 Order name: CT Abd/Pelvis - IV Contrast Only; Complete Time: 14:42 kb 06/28 16:34 Interpretation: Report reviewed. 06/28 14:42 Order name: US Abdomen Limited; Complete Time: 15:42 kb 06/28 15:43 Interpretation: Report reviewed. 06/28 15:58 Order name: CBC Smear Scan; Complete Time: 16:17 EDMS 06/28 12:31 Order name: Cardiac monitoring; Complete Time: 13:42 kb 06/28 12:31 Order name: EKG - Nurse/Tech; Complete Time: 13:42 kb 06/28 12:31 Order name: IV Saline Lock; Complete Time: 13:42 kb 06/28 12:31 Order name: Labs collected and sent; Complete Time: 13:42 kb 06/28 12:31 Order name: O2 Per Protocol; Complete Time: 13:42 kb 06/28 12:31 Order name: O2 Sat Monitoring; Complete Time: 13:42 kb EC:53 Rate is 76 beats/min. Rhythm is regular. QRS [place] is Normal. MA interval is normal at kb 136 msec. QRS interval is normal at 86 msec. QT interval is normal at 429 msec. Administered Medications: 13:30 Drug: Albuterol 1.25 mg Route: Inhalation; 7 14:00 Follow up: Response: No adverse reaction; No change in condition jl7 13:30 Drug: AtroVENT (ipratropium) Aerosol 0.5 mg Route: Inhalation; jl7 14:00 Follow up: Response: No adverse reaction; No change in condition jl7 17:19 Drug: Augmentin (Amoxicillin-Clavulanate) 875 mg Route: PO; jl7 17:33 Follow up: Response: No adverse reaction jl7 Disposition: 21:32 Co-signature as Attending Physician, Teto Sterling DO I agree with the assessment and ms3 plan of care. Disposition Summary: 06/28/22 16:55 Discharge Ordered Location: Home cp Problem: new cp Symptoms: have improved cp Condition: Stable cp Diagnosis - Lower abdominal pain, unspecified cp Followup: cp - With: Truman Carpenter MD - When: 1 - 2 days - Reason: Recheck today's complaints Discharge Instructions: - Discharge Summary Sheet cp - Abdominal Pain, Adult cp - Constipation, Adult cp Forms: - Medication Reconciliation Form cp - Thank You Letter cp - Antibiotic Education cp - Prescription Opioid Use cp Prescriptions: - Augmentin 875-125 mg Oral Tablet - take 1 tablet by ORAL route every 12 hours for 10 days; 20 tablet; Refills: 0, cp Product Selection Permitted Signatures: Dispatcher [employer] EDAnna Glasgow, BRITTANY-C STEAM SERVICE INSPECTOR-Jessica Chou RN RN Fernando Nevarez PA PA cp Leal, Jahala, RN RN jl7 Sims, Marcus, DO DO ms3 Corrections: (The following items were deleted from the chart) 15:28 15:12 Pt reports abd pain that started today. Went to the clinic and was sent here. kb States he was recently admitted for COPD, sent home on oxygen and steroids. Reports chronic edema in lower extremities. . kb 15:30 15:08 Cardiovascular: Edema: 2+ edema to level of left midcalf and right midcalf, kb kb 16:18 15:43 Normal except: CO2 33. cp cp
[2022-06-28] MEDS ORDERED: AMOX/K CLAV 875 MG TAB ONE (17:14)
[2022-06-28 18:37] VITALS: TEMP 97.2
[2022-06-28 18:51] VITALS: BP 106/55; O2SAT 100
--- NOTE | 2022-06-30 14:30 | EKG ---
Test Date: 2022-06-28 Test Time: 12:50:50 Hematology Oncology Consultant: GRISEL MEASUREMENT RESULTS: Intervals: Rate: 76 [place]: 136 QRSD: 86 QT: 382 QTc: 429 [place]: P: 31 [place]: 136 QRS: 56 T: 73 INTERPRETIVE STATEMENTS: Normal sinus rhythm Septal infarct, age undetermined Abnormal ECG Compared to ECG 06/16/2022 06:26:40 Sinus tachycardia no longer present Atrial premature complex(es) no longer present Aberrant conduction of supraventricular beat(s) no longer present Myocardial infarct finding still present Electronically Signed On 06-30-22 14:29:23 CDT by Shreyas Arriaza
== END 2022-06-28 17:34 | disposition home or self-care (01) ==
LOC: ER 12:17
DX: R10.30 Lower abdominal pain, unspecified (principal); J44.9 Chronic obstructive pulmonary disease, unspecified; I10 Essential (primary) hypertension
CPT/HCPCS: 85025; 80048; 36415; 80076; 84484; 83690; 83880; 74177; 71045; 76705; Q9967; 93005; 99285